=== PATIENT | female | born 1975 | race Caucasian/White ===

== ENCOUNTER 2016-08-17 14:22 | Emergency (ER) | payer MEDICAID ==
[~2016-08-17] VITALS: Wt 71.5 kg
[~2016-08-17 14:22] MED LIST: ALPR0.5T PO; CEPH-443 PO; HYD25 PO
[2016-08-17] MEDS ORDERED: ONDANSETRON (ODT) 4 MG TAB ODT STA (15:23)
[2016-08-17] MEDS ORDERED: HYDROCODONE/APAP (5/325) TAB PO ONE (15:30)
[2016-08-17 15:44] LABS: URINE BLOOD (Dip) POC 2+ (NEGATIVE)
--- NOTE | 2016-08-17 16:19 | ERD ---
ER Documentation Chief Complaint Date/Time DATE: 08/17/16 TIME: 16:14 Chief Complaint HPI This a 41-year-old female presents to the emergency department today complaining of abdominal pain that is been intermittent for the past 2 weeks. Patient states that 4 days ago she started with diarrhea and some nausea. Denies any fevers or chills. States she is concerned because she has a history of gallstones. States she is taking aspirin for the pain. States her stomach feels "inflamed" ROS All systems reviewed and are negative except as per history of present illness. Medications Home Meds Active Scripts Hydrocodone/Acetaminophen (Boomer 5-325 Tablet) 1 Each Tablet, 1 TAB PO Q6H Y for PAIN, #7 TAB Prov:MOSES WHITT PA-C 08/17/16 Dicyclomine Hcl* (Bentyl*) 10 Mg Capsule, 10 MG PO QID, #30 CAP Prov:MOSES WHITT PA-C 08/17/16 Ondansetron Hcl* (Zofran*) 4 Mg Tablet, 4 MG PO Q6H for NAUSEA AND/OR VOMITING, #30 TAB Prov:MOSES WHITT PA-C 08/17/16 Alprazolam* (Xanax*) 0.5 Mg Tab, 0.5 MG PO TID for ANXIETY, #15 TAB Prov:MELANY VASQUEZ MD 02/10/16 Hydrochlorothiazide* (Hydrochlorothiazide*) 25 Mg Tab, 25 MG PO BID, #60 TAB Prov:MELANY VASQUEZ MD 02/10/16 Cephalexin* (Keflex*) 500 Mg Capsule, 500 MG PO QID for 5 Days, CAP Prov:MELANY VASQUEZ MD 02/10/16 Allergies Allergies: Coded Allergies: No Known Allergies (Verified Allergy, Mild, 02/10/16) PMhx/Soc History of Surgery: No Anesthesia Reaction: No Hx Neurological Disorder: No Hx Respiratory Disorders: No Hx Cardiac Disorders: Yes (HTN) Hx Psychiatric Problems: No Hx Miscellaneous Medical Probl: No Hx Alcohol Use: No Hx Substance Use: No Hx Tobacco Use: No Smoking Status: Never smoker Physical Exam Vitals Vital Signs Date Time Temp Pulse Resp B/P Pulse Ox O2 Delivery O2 Flow Rate FiO2 08/17/16 14:26 98.7 96 20 149/97 98 Physical Exam Const: Obese, no acute distress Head: Atraumatic Eyes: Normal Conjunctiva ENT: Normal External Ears, Nose and Mouth. Neck: Full range of motion..~ No meningismus. Resp: Clear to auscultation bilaterally Cardio: Regular rate and rhythm, no murmurs Abd: Soft, no right upper quadrant tenderness, non distended. Normal bowel sounds. No tenderness McBurney's. Skin: No petechiae or rashes Back: No midline or flank tenderness Ext: No cyanosis, or edema Neur: Awake and alert Psych: Normal Mood and Affect Results 24 hrs Laboratory Tests Test 08/17/16 15:49 Bedside Urine pH (LAB) 6.0 Bedside Urine Protein (LAB) Negative Bedside Urine Glucose (UA) 0.50% Bedside Urine Ketones (LAB) Negative Bedside Urine Blood 2+ Bedside Urine Nitrite (LAB) Negative Bedside Urine Leukocyte Esterase (L Negative Current Medications Medications (Trade) Dose Ordered Sig/Patty Route PRN Reason Start Time Stop Time Status Last Admin Dose Admin Ondansetron HCl (Zofran Odt) 4 mg ONCE STAT ODT 08/17/16 15:23 08/17/16 15:25 DC 08/17/16 15:34 Acetaminophen/ Hydrocodone Bitart (Boomer (5/325)) 1 tab ONCE ONCE PO 08/17/16 15:30 08/17/16 15:31 DC 08/17/16 15:34 Procedures/MDM This a 41-year-old female presents to the emergency department today complaining of intermittent abdominal pain for the past 2 weeks and 4 days of diarrhea and some nausea. Patient was concerned because she has a history of gallstones. On her physical exam she has no right upper quadrant tenderness. She has no epigastric tenderness. She has no specific tenderness McBurney's and her pain appears to be more crampy in nature. She is afebrile and otherwise well-appearing. I do not feel the patient requires laboratory workup or imaging at this time especially given her nausea and diarrhea. Did obtain a UA UA is negative for infection and 2+ blood. Other differentials are nephrolithiasis however patient did indicate that her menstrual cycle is irregular and she may be getting her menstrual cycle. I explained to the patient she also has glucose in her urine however she has no ketones. Do not feel the patient requires further workup at this time. Urine test is negative Low suspicion for diverticulitis, acute appendicitis, acute cholecystitis, acute surgical abdomen. Patient was given Boomer and Zofran here in the emergency department. When I asked how she was feeling she jumped out of her chair and ran towards and is in no acute distress. She will begin a prescription for Boomer, Bentyl, Zofran for home At this time the patient is stable for discharge and outpatient management. Patient should follow up with their PCP in the next 1-2 days. They may return to the emergency department sooner for any persistent or worsening of symptoms. Patient understood and agreed with the plan. Discussed the patient with Dr. Durant and he is in agreement with the plan. Departure Diagnosis: Primary Impression: Abdominal pain Abdominal location: generalized Qualified Code: R10.84 - Generalized abdominal pain Additional Impression: Nausea vomiting and diarrhea Condition: MOSES Forrester PA-C Aug 17, 2016 16:19
[2016-08-17] MEDS ORDERED: ONDA4TAB8 PO (16:22)
[2016-08-17] MEDS ORDERED: DICY10CA60 PO (16:23)
[2016-08-17] MEDS ORDERED: HYDR-906 PO (16:23)
== END 2016-08-17 16:40 | disposition home or self-care (01) ==
LOC: FTE 14:22
DX: R10.84 Generalized abdominal pain (principal); R19.7 Diarrhea, unspecified; I10 Essential (primary) hypertension; R11.2 Nausea with vomiting, unspecified
CPT/HCPCS: 81003; Z7502; Z7610; 99283

== ENCOUNTER 2016-10-05 21:12 | Emergency (ER) | END 2016-10-06 02:50 | disposition home or self-care (01) | DX: I10 Essential (primary) hypertension (principal); E11.9 Type 2 diabetes mellitus without complications; Z79.84 Long term (current) use of oral hypoglycemic drugs | CPT/HCPCS: 36415; 70450; 80048; 85025; 85610; 85730; 96374; 96376; Z7502; Z7610 ==

== ENCOUNTER 2016-11-11 22:11 | Emergency (ER) | payer MEDICAID ==
[~2016-11-11] VITALS: Ht 157.5 cm; Wt 68.5 kg
[~2016-11-11 22:11] MED LIST changes: -ALPR0.5T PO; -CEPH-443 PO; -HYD25 PO; +IBUP200C11 PO; +LISI10TA2 PO; +METF500T4 PO
[2016-11-11 22:15] VITALS: Ht 157.5 cm; Wt 68.5 kg
[2016-11-12] MEDS ORDERED: IBUPROFEN 600 MG TAB PO ONE
[2016-11-12] MEDS ORDERED: IBUP-1542 PO (00:50)
--- NOTE | 2016-11-12 00:57 | ERD ---
ER Documentation Chief Complaint Date/Time DATE: 11/12/16 TIME: 00:53 Chief Complaint c/o htn, headache x 1 day HPI This is a 41-year-old female with a known history of hypertension and presents to the ER stating that her blood pressure is too high. Patient also developed a headache today which is located all over her head. Patient has not taken anything for her pain. Patient denies any fevers or chills. She has not fallen or had any trauma to the head. She denies any vision loss or vision changes. This is not the patient's headache of her life. Headache was gradual in onset and has been constant all day. ROS 12 point review of systems was done, all negative except per HPI. Medications Home Meds Active Scripts Ibuprofen* (Motrin*) 600 Mg Tab, 600 MG PO Q6, #30 TAB Prov:ROHITH STEPHEN 11/12/16 Metformin* (Glucophage*) 500 Mg Tab, 500 MG PO DAILY, #20 TAB Prov:PEPPER ALVAREZ MD 10/06/16 Lisinopril* (Lisinopril*) 10 Mg Tablet, 10 MG PO DAILY, #30 TAB Prov:PEPPER ALVAREZ MD 10/06/16 Reported Medications Ibuprofen* (Advil*) 200 Mg Capsule, 200 MG PO Q6H Y for PAIN, CAP 10/06/16 Allergies Allergies: Coded Allergies: No Known Allergies (Verified Allergy, Mild, 11/11/16) PMhx/Soc History of Surgery: No Anesthesia Reaction: No Hx Neurological Disorder: No Hx Respiratory Disorders: No Hx Cardiac Disorders: Yes (HTN) Hx Psychiatric Problems: No Hx Miscellaneous Medical Probl: Yes (dm2) Hx Alcohol Use: No Hx Substance Use: No Hx Tobacco Use: No Smoking Status: Never smoker Physical Exam Vitals Vital Signs Date Time Temp Pulse Resp B/P Pulse Ox O2 Delivery O2 Flow Rate FiO2 11/11/16 22:15 99.3 78 20 177/95 98 Physical Exam GENERAL: The patient is well developed and appropriate for usual state of health , in no apparent distress. HEENT: Atraumatic. Conjunctivae are pink. Pupils equal, round, and reactive to light. Extraocular muscles are grossly intact. Bilateral tympanic membranes are clear with no evidence of erythema, bulging or perforation. No sinus tenderness. NECK: C-spine is soft and supple. There is no cervical lymphadenopathy. CHEST: Clear to auscultation bilaterally. There are no rales, wheezes or rhonchi. HEART: Regular rate and rhythm. No murmurs, clicks, rubs or gallops. EXTREMITIES: Equal pulses bilaterally. There is no peripheral clubbing, cyanosis or edema. No focal swelling or erythema. Full range of motion. Grossly neurovascularly intact. NEURO: Alert and oriented. Cranial nerves II through XII are intact. Motor strength in all 4 extremities with 5/5 strength. Sensation grossly intact. Normal speech and gait. Negative Rhomberg. +2 DTRs. SKIN: There is no apparent rash or petechia. The skin is warm and dry. Results 24 hrs Current Medications Medications (Trade) Dose Ordered Sig/Patty Route PRN Reason Start Time Stop Time Status Last Admin Dose Admin Ibuprofen (Motrin) 600 mg ONCE ONCE PO 11/12/16 00:00 11/12/16 00:01 DC 11/11/16 23:56 Procedures/MDM Differential Diagnosis includes but is not limited to; tension headache, migraine headache, cluster headache, sinus headache, nonspecific febrile headache, trigeminal neurologia, subdural hematoma, subarachnoid bleeding, meningitis, encephalitis. Patient is neurologically intact with no focal neurological deficits. This is a 41-year-old female presents to the ER with a headache. This is likely a tension headache, patient physical examination is completely benign, I do not believe patient needs a CT scan because of this. Patient was given ibuprofen in the ER she felt significantly better. In regards to patient's blood pressure is elevated, however she does not have hypertensive emergency or urgency. Patient is stable for outpatient follow-up, she was told that she is to follow-up with her primary care doctor, she may need added medications for her blood pressure control. Patient is extremely well-appearing and afebrile. She should return to ER sooner if symptoms worsen. Departure Diagnosis: Primary Impression: Headache Condition: Stable Patient Instructions: Self-Care for Headaches, Hypertension, Established Additional Instructions: Llame al doctor MAANA y srinath levy OMA PARA DENTRO DE 1-2 VIRAMONTES.Dgale a la secretaria que nosotros le instruimos hacer esta oma.Avise o llame si salazar condicin se empeora antes de la oma. Regresa aqui si peor o no mejor. ROHITH STEPHEN Nov 12, 2016 00:57
[2016-11-12 01:00] VITALS: BP 162/90; PULSE 69; RESP 20
== END 2016-11-12 01:01 | disposition home or self-care (01) ==
LOC: FTE 22:11
DX: R51 Headache (principal); I10 Essential (primary) hypertension; E11.9 Type 2 diabetes mellitus without complications; Z79.84 Long term (current) use of oral hypoglycemic drugs
CPT/HCPCS: Z7502; Z7610; 99283

== ENCOUNTER 2016-12-06 20:06 | Inpatient (IN) | payer MEDICAID, OTHER ==
[~2016-12-06] VITALS: Ht 157.5 cm; Wt 69.7 kg
[~2016-12-06 20:06] MED LIST changes: +IBUP-1542 PO
[2016-12-06] MEDS ORDERED: SOD CHLORIDE 0.9% 1,000 ML IV STA (20:34)
[2016-12-06] MEDS ORDERED: SITA1TAB PO (20:48)
--- NOTE | 2016-12-06 20:50 | RADRPT ---
PROCEDURE: CT Brain without contrast. CLINICAL INDICATION: Acute onset of aphasia and left arm weakness. Hypertension. TECHNIQUE: A CT of the brain was performed on a [employer] 64-slice CT scanner utilizing axial imaging from the skull base through the vertex without IV contrast. Multiplanar reformatted images were made. Images were reviewed on a PACS workstation. One or more the following dose reduction lee ann hniques were utilized: Automated exposure control, adjustment of mA/ or kV according to patient's s ize, or use of iterative reconstruction technique. The CTDIvol is 44.9 mGy and the DLP is 720.2 mGy cm. COMPARISON: CT BRAIN 10/05/2016 FINDINGS: There is no intracranial hemorrhage, mass effect, or midline shift. No extra-axial fluid collection is seen. The ventricles and sulci are normal in size and configuration. The density of the brain is normal, and the domingo white matter differentiation appears well-preserved. The visualized paranasal sinuses and osseous structures are grossly unremarkable. IMPRESSION: 1. No evidence of acute intracranial pathology. 2. The brain is normal in appearance. Comment: A call report made to Dr. Bates at 8:47 p.m. and 12/06/[address] Levine. RPTAT: HJAH .Naya Levine MD, MD Date Time Electronically viewed and signed by .Naya Levine MD, on 12/06/2016 20:50 .H/
[2016-12-06 20:51] LABS: BASOPHIL # 0.1 10^3/ul (0.0-0.1); BASOPHILS % 0.7 % (0.0-2.0); EOSINOPHILS # 0.1 10^3/ul (0.0-0.5); HEMATOCRIT 40.5 % (37.0-47.0); LYMPHOCYTES # 2.4 10^3/ul (0.8-2.9); LYMPHOCYTES % 29.3 % (15.0-51.0); MEAN CORPUSCULAR HEMOGLOBIN 30.4 pg (29.0-33.0); MEAN CORPUSCULAR HGB CONC 34.6 g/dl (32.0-37.0); MEAN PLATELET VOLUME 11.1 fl (7.4-10.4); MONOCYTE # 0.6 10^3/ul (0.3-0.9); MONOCYTES % 7.5 % (0.0-11.0); NEUTROPHILS % 61.3 % (39.0-77.0); PLATELET COUNT 295 10^3/UL (140-415); RED CELL DISTRIBUTION WIDTH 12.4 % (11.5-14.5); WHITE BLOOD COUNT 8.2 10^3/ul (4.8-10.8)
[2016-12-06] MEDS ORDERED: niCARdipine-NS 0.1MG/ML DRIP 200 ML IV SCH (21:00)
--- NOTE | 2016-12-06 21:07 | ERA ---
ER Documentation Chief Complaint Date/Time DATE: 12/06/16 TIME: 21:03 Chief Complaint c/o CARDENAS with elevated BP HPI This a 41-year-old female who states that she started getting a dull headache and dizziness and felt like her blood pressure was high around 6 or 7 PM tonight. She took her blood pressure at home and had a blood pressure of 167/ 97. Patient told her to take her to the ER. The patient walked into the emergency room and when she got into triage she suddenly became weak and she could not speak. She was taken back to room 9 where her blood pressure is found to be 184/132 the patient was having her eyes closed and not conversing much with some tears. She said she could not speak. She is conveyed this by nodding when asking questions. She says she did not have a headache did not have any pain but that she could not talk and felt weak. A code stroke was called ROS All systems reviewed and are negative except as per history of present illness. Medications Home Meds Active Scripts Ibuprofen* (Motrin*) 600 Mg Tab, 600 MG PO Q6, #30 TAB Prov:ROHITH STEPHEN 11/12/16 Lisinopril* (Lisinopril*) 10 Mg Tablet, 10 MG PO DAILY, #30 TAB Prov:PEPPER ALVAREZ MD 10/06/16 Reported Medications Sitagliptin Phos/Metformin HCl (Janumet 50-500 mg Tablet) 1 Each Tablet, 1 EACH PO BID, TAB 12/06/16 Discontinued Reported Medications Ibuprofen* (Advil*) 200 Mg Capsule, 200 MG PO Q6H Y for PAIN, CAP 10/06/16 Discontinued Scripts Metformin* (Glucophage*) 500 Mg Tab, 500 MG PO DAILY, #20 TAB Prov:PEPPER ALVAREZ MD 10/06/16 Allergies Allergies: Coded Allergies: No Known Allergies (Verified Allergy, Mild, 12/06/16) PMhx/Soc History of Surgery: No Anesthesia Reaction: No Hx Neurological Disorder: No Hx Respiratory Disorders: No Hx Cardiac Disorders: Yes (HTN) Hx Psychiatric Problems: No Hx Miscellaneous Medical Probl: Yes (dm2) Hx Alcohol Use: No Hx Substance Use: No Hx Tobacco Use: No FmHx Family History: No coronary disease Physical Exam Vitals Vital Signs Date Time Temp Pulse Resp B/P Pulse Ox O2 Delivery O2 Flow Rate FiO2 12/06/16 21:43 80 15 147/95 98 Room Air 12/06/16 21:09 Nasal Cannula 2 12/06/16 21:02 84 15 157/102 98 Room Air 12/06/16 20:20 97.0 115 20 251/124 93 Physical Exam Const: Well-developed, well-nourished Head: Atraumatic, normocephalic Eyes: Normal Conjunctiva, PERRLA, EOMI, normal sclera, no nystagmus ENT: Normal External Ears, Nose and Mouth, moist mucus membranes. Neck: Full range of motion. No meningismus, no lymphadenopathy. Resp: Clear to auscultation bilaterally, no wheezing, rhonchi, rales Cardio: Regular rate and rhythm, no murmurs, S1 S2 present Abd: Soft, non tender x 4, non distended. Normal bowel sounds, no guarding or rebound, no pulsitile abdominal masses or bruits Skin: No petechiae or rashes, no ecchymosis , no maculopapular rash Back: No midline or flank tenderness Ext: No cyanosis, or edema, FROM x 4, normal inspection, neurovascularly intact x 4 Neur: Awake and alert, left upper extremity strength 1 out of 5, has some expressive aphasia, other extremities are 3 out of 5, sensation intact x 4, Psych: Tearful Result Diagram: 12/06/16203012/06/162030 Results 24 hrs Laboratory Tests Test 12/06/16 20:28 12/06/16 20:31 Bedside Glucose 141mg/dL White Blood Count 8.210^3/ul Red Blood Count 4.6010^6/ul Hemoglobin 14.0g/dl Hematocrit 40.5% Mean Corpuscular Volume 88.0fl Mean Corpuscular Hemoglobin 30.4pg Mean Corpuscular Hemoglobin Concent 34.6g/dl Red Cell Distribution Width 12.4% Platelet Count 26445^3/UL Mean Platelet Volume 11.1fl Neutrophils % 61.3% Lymphocytes % 29.3% Monocytes % 7.5% Eosinophils % 1.0% Basophils % 0.7% Nucleated Red Blood Cells % 0.0/100WBC Neutrophils # 5.010^3/ul Lymphocytes # 2.410^3/ul Monocytes # 0.610^3/ul Eosinophils # 0.110^3/ul Basophils # 0.110^3/ul Nucleated Red Blood Cells # 0.010^3/ul Prothrombin Time 13.2Sec Prothrombin Time Ratio 1.0 INR International Normalized Ratio 1.00 Activated Partial Thromboplast Time 26.8Sec Sodium Level 141mmol/L Potassium Level 3.4mmol/L Chloride Level 103mmol/L Carbon Dioxide Level 26mmol/L Anion Gap 15 Blood Urea Nitrogen 11mg/dl Creatinine 0.79mg/dl Glucose Level 120mg/dl Calcium Level 9.7mg/dl Total Bilirubin 0.3mg/dl Direct Bilirubin 0.00mg/dl Indirect Bilirubin 0.3mg/dl Aspartate Amino Transf (AST/SGOT) 25IU/L Alanine Aminotransferase (ALT/SGPT) 39IU/L Alkaline Phosphatase 58IU/L Troponin I < 0.012ng/ml Total Protein 7.9g/dl Albumin 4.5g/dl Globulin 3.40g/dl Albumin/Globulin Ratio 1.32 Serum HCG, Qualitative NEGATIVE Current Medications Medications (Trade) Dose Ordered Sig/Patty Route PRN Reason Start Time Stop Time Status Last Admin Dose Admin Sodium Chloride 1,000 ml @ 1,000 mls/hr Q1H STAT IV 12/06/16 20:34 12/06/16 21:33 DC 12/06/16 20:53 Nicardipine HCl (Cardene Iv) 200 ml @ 50 mls/hr TITRATE IV 12/06/16 21:00 12/06/16 20:53 Procedures/MDM PROCEDURE: CT Brain without contrast. CLINICAL INDICATION: Acute onset of aphasia and left arm weakness. Hypertension. TECHNIQUE: A CT of the brain was performed on a [employer] 64-slice CT scanner utilizing axial imaging from the skull base through the vertex without IV contrast. Multiplanar reformatted images were made. Images were reviewed on a PACS workstation. One or more the following dose reduction techniques were utilized: Automated exposure control, adjustment of mA/ or kV according to patient's size, or use of iterative reconstruction technique. The CTDIvol is 44.9 mGy and the DLP is 720.2 mGycm. COMPARISON: CT BRAIN 10/05/2016 FINDINGS: There is no intracranial hemorrhage, mass effect, or midline shift. No extra- axial fluid collection is seen. The ventricles and sulci are normal in size and configuration. The density of the brain is normal, and the domingo white matter differentiation appears well-preserved. The visualized paranasal sinuses and osseous structures are grossly unremarkable. IMPRESSION: 1. No evidence of acute intracranial pathology. 2. The brain is normal in appearance. Comment: A call report made to Dr. Saenz at 8:47 p.m. and 12/06/[address] Levine. RPTAT: HJAH .Naya Levine MD, MD Date Time Electronically viewed and signed by .Naya Levine MD, MD on 12/06/2016 20:50 .H/ CC: DRISS SAENZ DO Patient was started on a Cardene drip by IV hypertension EKG: Rate/Rhythm: Normal Sinus Rhythm,NL intervals QRS, ST, QT: NORMAL [place], QRS, QT] Impression: NORMAL EKG Telemetry neurology evaluated the patient and states the patient is doing much better at this point. Blood pressure is down on a Cardene drip. He says that she does not need TPA. He said there is some possible vessel widening abnormality on the CT scan and is recommending a CT angiogram to rule out any type of artery type of tear or thrombus there. This is been ordered and is currently pending CT angiogram of head and neck. Clinically the patient is improved. She likely had some hypertensive crisis/hypertensive encephalopathy with possible TIA. We will get CT angiogram neck tonight and will follow with MRI brain tomorrow. Critical Care Time: 30 minutes Treatments/Evaluations: Close monitoring and treatment of unstable vital signs, cardiorespiratory, and neurologic status, while maintaining tight balance of fluid, respiratory, and cardiac interventions. This time includes discussing the case with the patient and the patient's family. This time does not include all procedures stated elsewhere in this record. This time also includes reviewing old records, labs and radiological studies. This time includes examining and re-examining the patient. Additionally, this time also includes arranging care with admitting and consulting physicians. Departure Diagnosis: Primary Impression: Hypertensive crisis Additional Impression: TIA (transient ischemic attack) Qualified Code: G45.9 - Transient cerebral ischemia, unspecified type Condition: Stable DRISS SAENZ DO Dec 06, 2016 21:07
[2016-12-06 21:08] LABS: PROTIME 13.2 Sec (12.2-14.2)
[2016-12-06 21:09] LABS: PARTIAL THROMBOPLASTIN TIME 26.8 Sec (25.0-35.0)
[2016-12-06 21:12] LABS: ALANINE AMINOTRANSFERASE 39 IU/L (13-69); ALBUMIN 4.5 g/dl (3.3-4.9); ALBUMIN/GLOBULIN RATIO 1.32; ALKALINE PHOSPHATASE 58 IU/L (42-121); ANION GAP 15 (8-16); BILIRUBIN,INDIRECT 0.3 mg/dl (0-1.1); BILIRUBIN,TOTAL 0.3 mg/dl (0.2-1.3); BLOOD UREA NITROGEN 11 mg/dl (7-20); CALCIUM 9.7 mg/dl (8.4-10.2); CARBON DIOXIDE 26 mmol/L (21-31); CHLORIDE 103 mmol/L (97-110); CREATININE 0.79 mg/dl (0.44-1.00); GLUCOSE 120 mg/dl (70-220); POTASSIUM 3.4 mmol/L (3.5-5.1); SODIUM 141 mmol/L (135-144); TOTAL PROTEIN 7.9 g/dl (6.1-8.1)
[2016-12-06 21:17] LABS: ASPARTATE AMINO TRANSFERASE 25 IU/L (15-46)
[2016-12-06 21:26] LABS: TROPONIN-I < 0.012 ng/ml (0.00-0.12)
--- NOTE | 2016-12-06 21:48 | RADRPT ---
PROCEDURE: XR Chest. CLINICAL INDICATION: Weakness. Possible stroke. TECHNIQUE: Single frontal chest x-ray. COMPARISON: Chest radiograph 05/27/2014. FINDINGS: The lungs volumes are diminished. There are compressive changes with vascular crowding and basilar atelectasis. No pneumothorax, pleural effusion or consolidation is noted. The cardiomediastinal si lhouette is unremarkable. No acute osseous abnormality is noted. IMPRESSION: 1. Low lung volumes with compressive changes and basilar atelectasis. 2. Otherwise, no acute cardiopulmonary abnormality. RPTAT: HFN .Balaji Hou MD, MD Date Time Electronically viewed and signed by .Balaji Hou MD, on 12/06/2016 21:47 .N/
--- NOTE | 2016-12-06 22:09 | CONS ---
DATE OF ADMISSION: 12/06/2016 DATE OF CONSULTATION: 12/06/2016 HISTORY OF PRESENT ILLNESS: I was asked to see this 41-year-old female with a past medical history of hypertension, diabetes mellitus, for decreased strength on the left hand side. The patient prese nted with hypertension, and while in the emergency department developed onset of left-sided symptoms and inability to speak. By the time I am seeing the patient, the patient is now responsive, nonfoc al, and is able to follow commands with just slowing of responses. The patient apparently presented in September with some more symptoms. At that point in time, noncontrast imaging was unremarkable. N oncontrast imaging is again unremarkable tonight with the exception of some hyperdensity at the dist al aspect of her basilar. This was apparent to a lesser extent in her September films. The patient de nies any illicit drug use. She denies any medication changes or intoxication. Her blood glucose is within normal limits. PAST MEDICAL HISTORY: Significant for diabetes as well as hypertension. Her blood glucose today is 147. The patient is not a drinker, she is not a smoker. PHYSICAL EXAMINATION: The NIH stroke score was completed and she scores a 0. Specifically, she was oriented. She was a little bit slow to respond. Her extraocular movements were full. Facies were symmetric. Her strength is 5/5 throughout and she had no sensory impairment. She demonstrated no ataxia. ASSESSMENT: This is a 41-year-old female who likely has hypertensive encephalopathy. It is somewha t concerning that the patient's blood pressure was not extraordinarily high, but given the patient's nonspecific findings of hyperdensity in her vascular, I would perform a CTA of the head and neck to exclude any vertebrobasilar disease. However, the patient is young in age, and this would be an at ypical finding for someone with these risks. The patient should be watched closely. I would hydrat e her with saline. The patient should be given an aspirin. The patient should be admitted for obse rvation. I spoke directly with the emergency department regarding my recommendations. Dictated By: ELHAM GILMORE/VISHAL Conf#: [id number] DID#: [id number]
[2016-12-06] MEDS ORDERED: IOHEXOL 350MG/ML 50 ML BTL ONE (22:14)
[2016-12-06] MEDS ORDERED: IOHEXOL 100 ML ONE (22:14)
[2016-12-06] MEDS ORDERED: SOD CHLORIDE 0.9% 100 ML ONE (22:14)
[2016-12-06] MEDS ORDERED: ASPIRIN (EC) 325 MG TAB PO ONE (22:30)
--- NOTE | 2016-12-06 23:19 | RADRPT ---
PROCEDURE: CT angiogram of the head and neck with contrast. CLINICAL INDICATION: Stroke. TECHNIQUE: CT angiogram of the head and neck was performed on a multi-detector high-resolution CT scanner. Contiguous axial images were obtained after the dynamic injection of 115 cc Omnipaque 350 intravenous contrast. Coronal and sagittal as well as maximal intensity projection reformations we re obtained. 3-D post processing was also performed. Images were reviewed on a PACS workstation. One or more of the following dose reduction techniques were used: - Automated exposure control. - Adjustment of the mA and/or kV according to patient size. - Use of iterative reconstruction technique. Exam CTD/vol = 15.98 mGy. Total exam DLP = 573.63 mGy-cm. COMPARISON: None. FINDINGS: Neck: The visualized aortic arch and proximal great vessels are within normal limits. Bilateral com mon carotid arteries are normal course and caliber. Bilateral carotid bulbs and bifurcations are wi thin normal limits. Bilateral internal and external carotid arteries are of normal course and calib er. Bilateral vertebral arteries are of normal course and caliber. There is no significant stenosi s or occlusion. There is no evidence of aneurysm or dissection. Brain: Bilateral distal internal carotid arteries are normal course and caliber. Bilateral anterio r and middle cerebral arteries are within normal limits. Bilateral distal vertebral arteries are of normal course and caliber. The basilar artery is intact. Bilateral posterior cerebral arteries ar e within normal limits. There is no significant stenosis or occlusion. There is no evidence of ane urysm or vascular malformation. The venous structures are unremarkable. IMPRESSION: Unremarkable CT angiogram of the head and neck. No hemodynamically significant carotid stenosis. During measurements of vessel diameter was made in reference to measurements of the distal internal carotid artery diameter. .Fran Smith MD, MD Date Time Electronically viewed and signed by .Fran Smith MD, MD on 12/06/2016 23:19 .T/
--- NOTE | 2016-12-06 23:22 | RADRPT ---
PROCEDURE: CT angiogram of the head and neck with contrast. CLINICAL INDICATION: Stroke. TECHNIQUE: CT angiogram of the head and neck was performed on a multi-detector high-resolution CT [facility]. Contiguous axial images were obtained after the dynamic injection of 115 cc Omnipaque 350 int ravenous contrast. Coronal and sagittal as well as maximal intensity projection reformations were ob tained. 3-D post processing was also performed. Images were reviewed on a PACS workstation. One or more of the following dose reduction techniques were used: - Automated exposure control. - Adjustment of the mA and/or kV according to patient size. - Use of iterative reconstruction technique. Exam CTD/vol = 15.98 mGy. Total exam DLP = 573.63 mGy-cm. COMPARISON: None. FINDINGS: Neck: The visualized aortic arch and proximal great vessels are within normal limits. Bilateral comm on carotid arteries are normal course and caliber. Bilateral carotid bulbs and bifurcations are with in normal limits. Bilateral internal and external carotid arteries are of normal course and caliber. Bilateral vertebral arteries are of normal course and caliber. There is no significant stenosis or occlusion. There is no evidence of aneurysm or dissection. Brain: Bilateral distal internal carotid arteries are normal course and caliber. Bilateral anterior and middle cerebral arteries are within normal limits. Bilateral distal vertebral arteries are of no rmal course and caliber. The basilar artery is intact. Bilateral posterior cerebral arteries are wit hin normal limits. There is no significant stenosis or occlusion. There is no evidence of aneurysm o r vascular malformation. The venous structures are unremarkable. IMPRESSION: Unremarkable CT angiogram of the head and neck. No hemodynamically significant carotid stenosis. During measurements of vessel diameter was made in reference to measurements of the distal internal carotid artery diameter. .Fran Smith MD, MD Date Time Electronically viewed and signed by .Fran Smith MD, MD on 12/06/2016 23:22 .T/
[2016-12-06] MEDS ORDERED: SOD CHLORIDE 0.9% 1,000 ML IV SCH (23:23)
[2016-12-06] MEDS ORDERED: ONDANSETRON 4 MG INJ IV PRN (23:30)
[2016-12-06] MEDS ORDERED: ACETAMINOPHEN 325 MG TAB PO PRN (23:30)
[2016-12-07] VITALS (13 sets, daily range): BP systolic 104–137; BP diastolic 71–97; PULSE 71–97; RESP 16–20; Ht 157.5 cm; Wt 69.7 kg
[2016-12-07] MEDS ORDERED: ACETAMINOPHEN 325 MG TAB PO PRN (02:24)
[2016-12-07] MEDS ORDERED: BISACODYL (EC) 5 MG TAB PO PRN (02:30)
[2016-12-07] MEDS ORDERED: DOCUSATE SODIUM 100 MG CAP PO PRN (02:30)
[2016-12-07] MEDS ORDERED: ONDANSETRON 4 MG INJ IV PRN (02:30)
[2016-12-07] MEDS ORDERED: NACL 0.9% 3 ML SYG IV SCH (02:30)
[2016-12-07] MEDS ORDERED: hydrALAzine 20 MG INJ IV PRN (02:30)
--- NOTE | 2016-12-07 08:27 | HP ---
Date/Time of Note Date/Time of Note DATE: 12/07/16 TIME: 08:17 Assessment/Plan VTE Prophylaxis VTE Prophylaxis Intervention: SCD's Lines/Catheters IV [facility]from [facility] Saline Lock Assessment/Plan Chief Complaint/Hosp Course This is a 41-year-old female being admitted to the telemetry floor for: #1 Dizziness: TIA versus hypertensive encephalopathy. Patient has improved significantly since her initial episode and is close to baseline as per her self and her . The current time will monitor patient's blood pressure. Will allow for permissive hypertension however we will treat if greater than 180 /110. Will obtain MRI in the a.m. Neurochecks every 4 hours. Will check TSH lipid panel and hemoglobin A 1C. Consult neurology. Echocardiogram with bubble study. CT scan of the brain and CTA of the head and neck do not appear to show any acute abnormalities at this time. #2 hypertension: Again we will treat as per #1. #3 diabetes mellitus: We will check hemoglobin A1c, insulin sliding scale #4 hyperlipidemia: We will check lipid panel #5 DVT GI prophylaxis: SCDs, acid oleksandr Further treatment strategy will be implemented as per the clinical course Problems: HPI/ROS Admit Date/Time Admit Date/Time Dec 06, 2016 at 23:24 Hx of Present Illness Chief complaint: Headache and dizziness This a 41-year-old female who states that she started getting a dull headache and dizziness and felt like her blood pressure was high around 6 or 7 PM tonight. She took her blood pressure at home and had a blood pressure of 167/ 97. Patient told her to take her to the ER. The patient walked into the emergency room and when she got into triage she suddenly became weak and she could not speak. She was taken back to room 9 where her blood pressure is found to be 184/132 the patient was having her eyes closed and not conversing much with some tears. She said she could not speak. She is conveyed this by nodding when asking questions. She says she did not have a headache did not have any pain but that she could not talk and felt weak. A code stroke was called. As per telemetry neurology is suspected that this may be hypertensive encephalopathy. There was nonspecific findings hyperdensity in her vascular on CAT scan the recommendation was to perform a CT of the head and neck to exclude any vertebrobasilar disease. Of note upon my examination the patient did appear fatigued however there is no focal deficit on neurological exam. She was speaking coherently. Allergies: NKDA Medications: See JE DAY Const: As per HPI Eyes : No pain discharge or redness or change in visual acuity ENT: No pain, sore throat, congestion, congestion, dysphagia or discharge Respiratory: No shortness of breath, cough, sputum, wheezing, or pleuritic pain Cardiovascular: No chest pain, palpitation, PND, or edema GI : no change in appetite, abdominal pain, nausea, vomiting, diarrhea, constipation, or change in the color his stool Genitourinary: No dysuria, hematuria, flank pain , discharge or CVA tenderness Musculoskeletal: No joint pain, back pain, neck pain, restricted range of motion in neck or joints Skin: No rash, bruising or hives Neuro: As per HPI Endocrine: No polyuria, polydipsia, temperature intolerance Psych: No hallucination, depression, anxiety or suicidal ideation PMH/Family/Social Past Medical History Diabetes mellitus, hypertension, hyperlipidemia Past Surgical History Past Surgical Hx: no surgical history Family History Significant Family History: diabetes Social History Alcohol Use: none Smoking Status: Never smoker Drug Use: none Exam/Review of Systems Vital Signs Vitals Vital Signs Date Time Temp Pulse Resp B/P Pulse Ox O2 Delivery O2 Flow Rate FiO2 12/07/16 07:47 98.4 81 18 136/84 97 12/07/16 01:24 Room Air 12/06/16 21:09 2 Intake and Output 12/06/16 12/06/16 12/07/16 15:00 23:00 07:00 Intake Total 1300 ml Balance 1300 ml Exam Exam General: Patient is well-developed well-nourished The patient is alert oriented -3 lying comfortably in bed. HEENT: Atraumatic, normocephalic. The pupils are equal, round and reactive. Extraocular motor are intact Neck: Supple with full range of motion. No rigidity or meningismus Chest: Nontender Lungs: Clear to auscultation bilaterally no crackles rales or wheezing Heart: Normal S1-S2, Regular rhythm and rate. No overt murmurs appreciated Abdomen: Soft , nontender, nondistended , bowel sounds are present. No guarding no rebound tenderness , No masses or organomegaly. No costovertebral temporal angle mass Extremities: Normal to inspection, no edema no cyanosis Neurologic: Normal mental status, speech normal, cranial nerves II through XII are intact, motor and sensory are intact, no focal neurological deficits. Strength 5 out of 5 in bilateral upper and lower extremities Additional Comments PROCEDURE: XR Chest. CLINICAL INDICATION: Weakness. Possible stroke. TECHNIQUE: Single frontal chest x-ray. COMPARISON: Chest radiograph 05/27/2014. FINDINGS: The lungs volumes are diminished. There are compressive changes with vascular crowding and basilar atelectasis. No pneumothorax, pleural effusion or consolidation is noted. The cardiomediastinal silhouette is unremarkable. No acute osseous abnormality is noted. IMPRESSION: 1. Low lung volumes with compressive changes and basilar atelectasis. 2. Otherwise, no acute cardiopulmonary abnormality. RPTAT: HFN .Balaji Hou MD, MD Date Time Electronically viewed and signed by .Balaji Hou MD, MD on 12/06/2016 21: 47 .N/ CC: DRISS SAENZ DO PROCEDURE: CT Brain without contrast. CLINICAL INDICATION: Acute onset of aphasia and left arm weakness. Hypertension. TECHNIQUE: A CT of the brain was performed on a [employer] 64-slice CT scanner utilizing axial imaging from the skull base through the vertex without IV contrast. Multiplanar reformatted images were made. Images were reviewed on a PACS workstation. One or more the following dose reduction techniques were utilized: Automated exposure control, adjustment of mA/ or kV according to patient's size, or use of iterative reconstruction technique. The CTDIvol is 44.9 mGy and the DLP is 720.2 mGycm. COMPARISON: CT BRAIN 10/05/2016 FINDINGS: There is no intracranial hemorrhage, mass effect, or midline shift. No extra- axial fluid collection is seen. The ventricles and sulci are normal in size and configuration. The density of the brain is normal, and the [place] white matter differentiation appears well-preserved. The visualized paranasal sinuses and osseous structures are grossly unremarkable. IMPRESSION: 1. No evidence of acute intracranial pathology. 2. The brain is normal in appearance. Comment: A call report made to Dr. Saenz at 8:47 p.m. and 12/06/[address] Levine. RPTAT: HJAH .Naya Levine MD, MD Date Time Electronically viewed and signed by .Naya Levine MD, MD on 12/06/2016 20:50 .H/ CC: DRISS SAENZ DO PROCEDURE: CT angiogram of the head and neck with contrast. CLINICAL INDICATION: Stroke. TECHNIQUE: CT angiogram of the head and neck was performed on a multi- detector high-resolution CT scanner. Contiguous axial images were obtained after the dynamic injection of 115 cc Omnipaque 350 intravenous contrast. Coronal and sagittal as well as maximal intensity projection reformations were obtained. 3-D post processing was also performed. Images were reviewed on a PACS workstation. One or more of the following dose reduction techniques were used: - Automated exposure control. - Adjustment of the mA and/or kV according to patient size. - Use of iterative reconstruction technique. Exam CTD/vol = 15.98 mGy. Total exam DLP = 573.63 mGy-cm. COMPARISON: None. FINDINGS: Neck: The visualized aortic arch and proximal great vessels are within normal limits. Bilateral common carotid arteries are normal course and caliber. Bilateral carotid bulbs and bifurcations are within normal limits. Bilateral internal and external carotid arteries are of normal course and caliber. Bilateral vertebral arteries are of normal course and caliber. There is no significant stenosis or occlusion. There is no evidence of aneurysm or dissection. Brain: Bilateral distal internal carotid arteries are normal course and caliber. Bilateral anterior and middle cerebral arteries are within normal limits. Bilateral distal vertebral arteries are of normal course and caliber. The basilar artery is intact. Bilateral posterior cerebral arteries are within normal limits. There is no significant stenosis or occlusion. There is no evidence of aneurysm or vascular malformation. The venous structures are unremarkable. IMPRESSION: Unremarkable CT angiogram of the head and neck. No hemodynamically significant carotid stenosis. During measurements of vessel diameter was made in reference to measurements of the distal internal carotid artery diameter. .Fran Smith MD, MD Date Time Electronically viewed and signed by .Fran Smith MD, MD on 12/06/2016 23:19 .T/ CC: DRISS SAENZ DO PROCEDURE: CT angiogram of the head and neck with contrast. CLINICAL INDICATION: Stroke. TECHNIQUE: CT angiogram of the head and neck was performed on a multi-detector high-resolution CT scanner. Contiguous axial images were obtained after the dynamic injection of 115 cc Omnipaque 350 intravenous contrast. Coronal and sagittal as well as maximal intensity projection reformations were obtained. 3- D post processing was also performed. Images were reviewed on a PACS workstation. One or more of the following dose reduction techniques were used: - Automated exposure control. - Adjustment of the mA and/or kV according to patient size. - Use of iterative reconstruction technique. Exam CTD/vol = 15.98 mGy. Total exam DLP = 573.63 mGy-cm. COMPARISON: None. FINDINGS: Neck: The visualized aortic arch and proximal great vessels are within normal limits. Bilateral common carotid arteries are normal course and caliber. Bilateral carotid bulbs and bifurcations are within normal limits. Bilateral internal and external carotid arteries are of normal course and caliber. Bilateral vertebral arteries are of normal course and caliber. There is no significant stenosis or occlusion. There is no evidence of aneurysm or dissection. Brain: Bilateral distal internal carotid arteries are normal course and caliber. Bilateral anterior and middle cerebral arteries are within normal limits. Bilateral distal vertebral arteries are of normal course and caliber. The basilar artery is intact. Bilateral posterior cerebral arteries are within normal limits. There is no significant stenosis or occlusion. There is no evidence of aneurysm or vascular malformation. The venous structures are unremarkable. IMPRESSION: Unremarkable CT angiogram of the head and neck. No hemodynamically significant carotid stenosis. During measurements of vessel diameter was made in reference to measurements of the distal internal carotid artery diameter. .Fran Smith MD, MD Date Time Electronically viewed and signed by .Fran Smith MD, on 12/06/2016 23:22 .T/ CC: DRISS SAENZ DO EKG: Rate/Rhythm: Normal Sinus Rhythm,NL intervals QRS, ST, QT: NORMAL GA, QRS, QT] Impression: NORMAL EKG Labs Result Diagram: 12/06/16203012/06/162030 Medications Medications Current Medications Ondansetron HCl (Zofran Inj) 4 mg Q6H PRN IV NAUSEA AND/OR VOMITING; Start at 02:30 Acetaminophen (Tylenol Tab) 650 mg Q6H PRN PO PAIN LEVEL 1-3 OR FEVER; Start 12/07/16 at 02:30 Docusate Sodium (Colace) 100 mg Q12H PRN PO CONSTIPATION; Start 12/07/16 at 02 :30 Bisacodyl (Dulcolax) 5 mg DAILY PRN PO CONSTIPATION; Start 12/07/16 at 02:30 Famotidine (Pepcid Iv) 20 mg Q12 IV ; Start 12/07/16 at 09:00 Hydralazine HCl (Apresoline) 10 mg Q4H PRN IV ELEVATED BLOOD PRESSURE; Start 12/07/16 at 02:30 Acetaminophen (Tylenol Tab) 650 mg Q4H PRN PO PAIN AND OR ELEVATED TEMP; Start 12/07/16 at 02:24 OTF FORTUNE Dec 07, 2016 08:27
[2016-12-07 08:30] LABS: BASOPHIL # 0.1 10^3/ul (0.0-0.1); BASOPHILS % 0.8 % (0.0-2.0); EOSINOPHILS # 0.1 10^3/ul (0.0-0.5); EOSINOPHILS % 1.3 % (0.0-7.0); HEMATOCRIT 39.5 % (37.0-47.0); HEMOGLOBIN 13.3 g/dl (12.0-16.0); LYMPHOCYTES # 1.5 10^3/ul (0.8-2.9); LYMPHOCYTES % 18.9 % (15.0-51.0); MEAN CORPUSCULAR HGB CONC 33.7 g/dl (32.0-37.0); MEAN CORPUSCULAR VOLUME 89.2 fl (82.0-101.0); MEAN PLATELET VOLUME 10.8 fl (7.4-10.4); MONOCYTE # 0.5 10^3/ul (0.3-0.9); MONOCYTES % 6.9 % (0.0-11.0); NEUTROPHIL # 5.6 10^3/ul (1.6-7.5); NEUTROPHILS % 71.7 % (39.0-77.0); PLATELET COUNT 284 10^3/UL (140-415); RED BLOOD COUNT 4.43 10^6/ul (4.20-5.40); RED CELL DISTRIBUTION WIDTH 12.5 % (11.5-14.5); WHITE BLOOD COUNT 7.8 10^3/ul (4.8-10.8)
[2016-12-07] MEDS ORDERED: FAMOTIDINE 20 MG INJ IV SCH (09:00)
[2016-12-07 09:17] LABS: ALBUMIN/GLOBULIN RATIO 1.29; BILIRUBIN,INDIRECT 0.3 mg/dl (0-1.1); BILIRUBIN,TOTAL 0.3 mg/dl (0.2-1.3); CALCIUM 8.9 mg/dl (8.4-10.2); CHOL/HDL RATIO 4.5 RATIO; CREATININE 0.67 mg/dl (0.44-1.00); MAGNESIUM 1.9 mg/dl (1.7-2.5); POTASSIUM 3.7 mmol/L (3.5-5.1); TOTAL PROTEIN 7.1 g/dl (6.1-8.1)
[2016-12-07] MEDS: ACETAMINOPHEN 325 MG TAB PO PRN (09:34)
[2016-12-07 10:20] LABS: THYROID STIMULATING HORMONE 7.15 MIU/L (0.465-4.680)
--- NOTE | 2016-12-07 13:09 | CONS ---
Date/Time of Note Date/Time of Note DATE: 12/07/16 TIME: 13:05 Assessment/Plan Assessment/Plan Chief Complaint/Hosp Course 41 yo female w hx of HTN, DM admitted with weakness, difficulty speaking in setting of elevated blood pressure. Likely hypertensive emergency. May pursue further imaging MRI Brain and MRA Head/Neck w/o contrast to eval for ischemic changes when SBP is more controlled less than 140 may benefit from ASA 81 mg daily optimize stroke risk factors check FLP and HBA1C ECHO w bubble study will follow Problems: Consultation Date/Type/Reason Admit Date/Time Dec 06, 2016 at 23:24 Date of Consultation: Dec 07, 2016 Type of Consultation: Neurology Reason for Consultation hypertensive emergency TIA eval Referring Provider: OTF FORTUNE Hx of Present Illness 41 yo female w hx of HTN and DM admitted with headache and dizziness with SBP elevated last night, checked her BP at home 167/97 per report. She c/o sudden generalized weakness and inability to speak, she reports prior hx of similar sx over 3 years ago. She was evaluated by tele neuro, suspected hypertensive encephalopathy. Her symptoms are now resolved, no further difficulty w speech or headaches. She is unable to report how long her sx lasted for. Past Surgical History Past Surgical Hx: no surgical history Social History Alcohol Use: none Smoking Status: Never smoker Drug Use: none Exam/Review of Systems Vital Signs Vitals Vital Signs Date Time Temp Pulse Resp B/P Pulse Ox O2 Delivery O2 Flow Rate FiO2 12/07/16 12:00 71 12/07/16 11:23 98.8 18 136/97 98 12/07/16 01:24 Room Air 12/06/16 21:09 2 Intake and Output 12/06/16 12/06/16 12/07/16 15:00 23:00 07:00 Intake Total 1300 ml Balance 1300 ml Exam Constitutional: alert, oriented, well developed Neurological: BREAST BUFFER II-XII intact, DTR's symmetric, nl mental status, nl speech, nl strength Results Result Diagram: 12/07/16 0806 12/07/16 0806 Results 24 hrs Laboratory Tests Test 12/06/16 20:28 12/06/16 20:31 12/06/16 23:07 12/07/16 08:06 Bedside Glucose 141 109 99 White Blood Count 8.2 # 7.8 Red Blood Count 4.60 4.43 Hemoglobin 14.0 13.3 Hematocrit 40.5 39.5 Mean Corpuscular Volume 88.0 89.2 Mean Corpuscular Hemoglobin 30.4 30.0 Mean Corpuscular Hemoglobin Concent 34.6 33.7 Red Cell Distribution Width 12.4 12.5 Platelet Count 295 284 Mean Platelet Volume 11.1 H 10.8 H Neutrophils % 61.3 71.7 Lymphocytes % 29.3 18.9 Monocytes % 7.5 6.9 Eosinophils % 1.0 1.3 Basophils % 0.7 0.8 Nucleated Red Blood Cells % 0.0 0.0 Neutrophils # 5.0 5.6 Lymphocytes # 2.4 1.5 Monocytes # 0.6 0.5 Eosinophils # 0.1 0.1 Basophils # 0.1 0.1 Nucleated Red Blood Cells # 0.0 0.0 Prothrombin Time 13.2 Prothrombin Time Ratio 1.0 INR International Normalized Ratio 1.00 Activated Partial Thromboplast Time 26.8 Sodium Level 141 140 Potassium Level 3.4 L 3.7 Chloride Level 103 106 Carbon Dioxide Level 26 24 Anion Gap 15 14 Blood Urea Nitrogen 11 10 Creatinine 0.79 0.67 Glucose Level 120 93 Calcium Level 9.7 8.9 Total Bilirubin 0.3 0.3 Direct Bilirubin 0.00 0.00 Indirect Bilirubin 0.3 0.3 Aspartate Amino Transf (AST/SGOT) 25 19 Alanine Aminotransferase (ALT/SGPT) 39 38 Alkaline Phosphatase 58 53 Troponin I < 0.012 Total Protein 7.9 7.1 Albumin 4.5 4.0 Globulin 3.40 H 3.10 Albumin/Globulin Ratio 1.32 1.29 Serum HCG, Qualitative NEGATIVE Hemoglobin A1c 7.3 H Magnesium Level 1.9 Triglycerides Level 77 Cholesterol Level 137 LDL Cholesterol, Calculated 92 HDL Cholesterol 30 L Cholesterol/HDL Ratio 4.5 Thyroid Stimulating Hormone (TSH) 7.150 H Medications Medications Current Medications Ondansetron HCl (Zofran Inj) 4 mg Q6H PRN IV NAUSEA AND/OR VOMITING; Start at 02:30 Acetaminophen (Tylenol Tab) 650 mg Q6H PRN PO PAIN LEVEL 1-3 OR FEVER Last administered on 12/07/16t 09:34; Admin Dose 650 MG; Start 12/07/16 at 02:30 Docusate Sodium (Colace) 100 mg Q12H PRN PO CONSTIPATION; Start 12/07/16 at 02 :30 Bisacodyl (Dulcolax) 5 mg DAILY PRN PO CONSTIPATION; Start 12/07/16 at 02:30 Famotidine (Pepcid Iv) 20 mg Q12 IV Last administered on 12/07/16t 10:33; Admin Dose 20 MG; Start 12/07/16 at 09:00 Hydralazine HCl (Apresoline) 10 mg Q4H PRN IV ELEVATED BLOOD PRESSURE; Start 12/07/16 at 02:30 Acetaminophen (Tylenol Tab) 650 mg Q4H PRN PO PAIN AND OR ELEVATED TEMP; Start 12/07/16 at 02:24 YOLY BRAR MD Dec 07, 2016 13:09
[2016-12-07] MEDS ORDERED: GLUCOSE GEL 15 GRAM TUBE PO PRN ×2 (16:00)
[2016-12-07] MEDS ORDERED: DEXTROSE 50% 50 ML SYRINGE IV PRN ×2 (16:00)
[2016-12-07] MEDS ORDERED: GLUCOSE GEL 15 GRAM TUBE BUCCAL PRN (16:00)
[2016-12-07] MEDS ORDERED: GLUCAGON 1 MG INJ IM PRN (16:00)
[2016-12-07] MEDS: INSULIN ASPART [NOVOLOG] 3 ML PEN SC SCH ×3 (17:44→20:15)
[2016-12-07] MEDS: FAMOTIDINE 20 MG TAB PO SCH (20:13)
[2016-12-07 23:12] LABS: BARBITURATES Negative (NEGATIVE); BENZODIAZEPINES Negative (NEGATIVE); CANNABINOIDS Negative (NEGATIVE); COCAINE Negative (NEGATIVE); OPIATES Negative (NEGATIVE)
[2016-12-08] VITALS (11 sets, daily range): BP systolic 125–155; BP diastolic 78–103; PULSE 70–100; RESP 16–18
[2016-12-08] MEDS: ACCU-CHEK XX SCH (01:47)
[2016-12-08] MEDS ORDERED: ACCU-CHEK XX SCH (02:00)
[2016-12-08] MEDS: ACETAMINOPHEN 325 MG TAB PO PRN (04:51)
[2016-12-08] MEDS: INSULIN ASPART [NOVOLOG] 3 ML PEN SC SCH ×7 (08:00→20:32)
[2016-12-08] MEDS: FAMOTIDINE 20 MG TAB PO SCH ×2 (08:53→20:29)
[2016-12-08 09:32] LABS: BASOPHIL # 0.1 10^3/ul (0.0-0.1); BASOPHILS % 0.8 % (0.0-2.0); EOSINOPHILS # 0.1 10^3/ul (0.0-0.5); EOSINOPHILS % 1.3 % (0.0-7.0); HEMATOCRIT 40.7 % (37.0-47.0); HEMOGLOBIN 13.8 g/dl (12.0-16.0); LYMPHOCYTES # 1.5 10^3/ul (0.8-2.9); LYMPHOCYTES % 20.8 % (15.0-51.0); MEAN CORPUSCULAR HEMOGLOBIN 30.4 pg (29.0-33.0); MEAN CORPUSCULAR HGB CONC 33.9 g/dl (32.0-37.0); MEAN CORPUSCULAR VOLUME 89.6 fl (82.0-101.0); MEAN PLATELET VOLUME 10.7 fl (7.4-10.4); MONOCYTE # 0.4 10^3/ul (0.3-0.9); MONOCYTES % 5.9 % (0.0-11.0); NEUTROPHIL # 5.1 10^3/ul (1.6-7.5); NEUTROPHILS % 71.1 % (39.0-77.0); PLATELET COUNT 274 10^3/UL (140-415); RED BLOOD COUNT 4.54 10^6/ul (4.20-5.40); RED CELL DISTRIBUTION WIDTH 12.5 % (11.5-14.5); WHITE BLOOD COUNT 7.1 10^3/ul (4.8-10.8)
[2016-12-08 09:50] LABS: MAGNESIUM 1.9 mg/dl (1.7-2.5)
[2016-12-08 09:51] LABS: ALBUMIN 4.1 g/dl (3.3-4.9); ALBUMIN/GLOBULIN RATIO 1.36; BILIRUBIN,INDIRECT 0.6 mg/dl (0-1.1); BILIRUBIN,TOTAL 0.6 mg/dl (0.2-1.3); CALCIUM 8.8 mg/dl (8.4-10.2); CREATININE 0.7 mg/dl (0.44-1.00); POTASSIUM 3.9 mmol/L (3.5-5.1); TOTAL PROTEIN 7.1 g/dl (6.1-8.1)
--- NOTE | 2016-12-08 11:39 | CONS ---
Date/Time of Note Date/Time of Note DATE: 12/08/16 TIME: 11:38 Consult Date/Type/Reason Admit Date/Time Dec 06, 2016 at 23:24 Initial Consult Date 12/07/16 Type of Consultation: Neurology Reason for Consultation difficulty speaking weakness r/o TIA Ordering Provider: OTF FORTUNE Subjective c/o generalized weakness no further speech issues Objective Vital Signs Date Time Temp Pulse Resp B/P Pulse Ox O2 Delivery O2 Flow Rate FiO2 12/08/16 08:00 87 12/08/16 07:45 97.8 18 152/97 98 12/07/16 01:24 Room Air 12/06/16 21:09 2 Intake and Output 12/07/16 12/07/16 12/08/16 15:00 23:00 07:00 Intake Total 360 ml 900 ml Balance 360 ml 900 ml Exam Constitutional: alert, oriented, well developed Neurological: PRIMARY OPERATOR II-XII intact, DTR's symmetric, nl mental status, nl speech, nl strength Results/Medications Result Diagram: 12/08/1618 12/08/1618 Results 24 hrs Laboratory Tests Test 12/07/16 12:54 12/07/16 17:12 12/07/16 20:06 12/07/16 21:50 Bedside Glucose 88 90 112 Urine Opiates Screen Negative Urine Barbiturates Negative Urine Amphetamines Screen Negative Urine Benzodiazepines Screen Negative Urine Cocaine Screen Negative Urine Cannabinoids Negative Test 12/08/16 08:52 12/08/16 09:18 Bedside Glucose 104 White Blood Count 7.1 Red Blood Count 4.54 Hemoglobin 13.8 Hematocrit 40.7 Mean Corpuscular Volume 89.6 Mean Corpuscular Hemoglobin 30.4 Mean Corpuscular Hemoglobin Concent 33.9 Red Cell Distribution Width 12.5 Platelet Count 274 Mean Platelet Volume 10.7 H Neutrophils % 71.1 Lymphocytes % 20.8 Monocytes % 5.9 Eosinophils % 1.3 Basophils % 0.8 Nucleated Red Blood Cells % 0.0 Neutrophils # 5.1 Lymphocytes # 1.5 Monocytes # 0.4 Eosinophils # 0.1 Basophils # 0.1 Nucleated Red Blood Cells # 0.0 Sodium Level 140 Potassium Level 3.9 Chloride Level 104 Carbon Dioxide Level 27 Anion Gap 13 Blood Urea Nitrogen 13 Creatinine 0.70 Glucose Level 144 # Calcium Level 8.8 Phosphorus Level 4.0 Magnesium Level 1.9 Total Bilirubin 0.6 Direct Bilirubin 0.00 Indirect Bilirubin 0.6 Aspartate Amino Transf (AST/SGOT) 24 Alanine Aminotransferase (ALT/SGPT) 40 Alkaline Phosphatase 50 Total Protein 7.1 Albumin 4.1 Globulin 3.00 Albumin/Globulin Ratio 1.36 Thyroid Stimulating Hormone (TSH) Pending Medications Current Medications Ondansetron HCl (Zofran Inj) 4 mg Q6H PRN IV NAUSEA AND/OR VOMITING; Start at 02:30 Acetaminophen (Tylenol Tab) 650 mg Q6H PRN PO PAIN LEVEL 1-3 OR FEVER Last administered on 12/08/16 04:51; Admin Dose 650 MG; Start 12/07/16 at 02:30 Docusate Sodium (Colace) 100 mg Q12H PRN PO CONSTIPATION; Start 12/07/16 at 02 :30 Bisacodyl (Dulcolax) 5 mg DAILY PRN PO CONSTIPATION; Start 12/07/16 at 02:30 Hydralazine HCl (Apresoline) 10 mg Q4H PRN IV ELEVATED BLOOD PRESSURE; Start 12/07/16 at 02:30 Acetaminophen (Tylenol Tab) 650 mg Q4H PRN PO PAIN AND OR ELEVATED TEMP; Start 12/07/16 at 02:24 Famotidine (Pepcid) 20 mg Q12 PO Last administered on 12/08/16 08:53; Admin Dose 20 MG; Start 12/07/16 at 21:00 Diagnostic Test (Pha) (Accu-Chek) 1 ea 02 XX ; Start 12/08/16 at 02:00 Miscellaneous Information 1 ea NOTE XX ; Start 12/07/16 at 16:00 Glucose (Glutose) 15 gm Q15M PRN PO DECREASED GLUCOSE; Start 12/07/16 at 16:00 Glucose (Glutose) 22.5 gm Q15M PRN PO DECREASED GLUCOSE; Start 12/07/16 at 16: 00 Dextrose (D50w Syringe) 25 ml Q15M PRN IV DECREASED GLUCOSE; Start 12/07/16 at 16:00 Dextrose (D50w Syringe) 50 ml Q15M PRN IV DECREASED GLUCOSE; Start 12/07/16 at 16:00 Glucagon (Glucagen) 1 mg Q15M PRN IM DECREASED GLUCOSE; Start 12/07/16 at 16: 00 Glucose (Glutose) 15 gm Q15M PRN BUCCAL DECREASED GLUCOSE; Start 12/07/16 at 16:00 Simethicone (Mylicon) 80 mg QID PRN PO DISTENSION/GAS/BLOATING Last administered on 12/07/16t 20:13; Admin Dose 80 MG; Start 12/07/16 at 16:30 Assessment/Plan Chief Complaint/Hosp Course 41 yo female w hx of HTN, DM admitted with weakness, difficulty speaking in setting of elevated blood pressure. Likely hypertensive emergency. May pursue further imaging MRI Brain and MRA Head/Neck w/o contrast to eval for ischemic changes when SBP is more controlled less than 140 may benefit from ASA 81 mg daily optimize stroke risk factors check FLP and HBA1C ECHO w bubble study will follow Problems: YOLY BRAR MD Dec 08, 2016 11:39
--- NOTE | 2016-12-08 11:46 | PN ---
Date/Time of Note Date/Time of Note DATE: 12/08/16 TIME: 11:45 Assessment/Plan VTE Prophylaxis VTE Prophylaxis Intervention: ambulation Lines/Catheters IV Catheter Type (from [facility]): [place] [facility] Assessment/Plan Chief Complaint/Hosp Course 1. Transient weakness with difficulty in speech in the setting of elevated blood pressure. The patient being followed by neurology. Brain CT negative. Neck CTA negative for any hemodynamically significant carotid artery stenosis. Pending brain MRI. Obtain physical therapy evaluation 2. Hypertensive urgency. Currently the blood pressure is controlled. 3. Diabetes mellitus type 2. Hemoglobin A1c 7.3. Continue sliding scale insulin. Blood sugars well controlled. 4. Fluids, electrolytes, and nutrition. Carbohydrate controlled diet. 5. DVT prophylaxis. Ambulation. 6. Plan. Await MRI. Await physical therapy evaluation. Case discussed with Dr. Cramer. Problems: Subjective 24 Hr Interval Summary Free Text/Dictation Denies any dizziness. Complains of left shoulder pain. Exam/Review of Systems Vital Signs Vitals Vital Signs Date Time Temp Pulse Resp B/P Pulse Ox O2 Delivery O2 Flow Rate FiO2 12/08/16 08:00 87 12/08/16 07:45 97.8 18 152/97 98 12/07/16 01:24 Room Air 12/06/16 21:09 2 Intake and Output 12/07/16 12/07/16 12/08/16 15:00 23:00 07:00 Intake Total 360 ml 900 ml Balance 360 ml 900 ml Exam General: Adequately build 41 year-old female lying in bed in no apparent distress. HEENT: Normocephalic, atraumatic. Eyes: Anicteric sclerae, conjunctivae clear. ENT: Nasal septum midline, oral mucosa moist. Neck supple, no JVD noticed. Respiratory: Bilaterally clear breath sounds. No use of accessory muscles of respiration. No adventitious breath sounds. Cardiovascular: S1, S2 heard. No murmurs or gallops. Abdomen: Soft, nontender, and nondistended. Bowel sounds positive in all 4 quadrants. Genitourinary: Deferred. Extremities: No cyanosis, no clubbing, no edema. Peripheral pulses palpable. Left shoulder tenderness to palpation. Neurologic: Cranial nerves II through XII grossly intact. The patient is awake, alert, and oriented. Skin: Normal skin turgor. No skin rashes. Results Result Diagram: 12/08/1618 12/08/16 0918 Results 24 hrs Laboratory Tests Test 12/07/16 12:54 12/07/16 17:12 12/07/16 20:06 12/07/16 21:50 Bedside Glucose 88 90 112 Urine Opiates Screen Negative Urine Barbiturates Negative Urine Amphetamines Screen Negative Urine Benzodiazepines Screen Negative Urine Cocaine Screen Negative Urine Cannabinoids Negative Test 12/08/16 08:52 12/08/16 09:18 Bedside Glucose 104 White Blood Count 7.1 Red Blood Count 4.54 Hemoglobin 13.8 Hematocrit 40.7 Mean Corpuscular Volume 89.6 Mean Corpuscular Hemoglobin 30.4 Mean Corpuscular Hemoglobin Concent 33.9 Red Cell Distribution Width 12.5 Platelet Count 274 Mean Platelet Volume 10.7 H Neutrophils % 71.1 Lymphocytes % 20.8 Monocytes % 5.9 Eosinophils % 1.3 Basophils % 0.8 Nucleated Red Blood Cells % 0.0 Neutrophils # 5.1 Lymphocytes # 1.5 Monocytes # 0.4 Eosinophils # 0.1 Basophils # 0.1 Nucleated Red Blood Cells # 0.0 Sodium Level 140 Potassium Level 3.9 Chloride Level 104 Carbon Dioxide Level 27 Anion Gap 13 Blood Urea Nitrogen 13 Creatinine 0.70 Glucose Level 144 # Calcium Level 8.8 Phosphorus Level 4.0 Magnesium Level 1.9 Total Bilirubin 0.6 Direct Bilirubin 0.00 Indirect Bilirubin 0.6 Aspartate Amino Transf (AST/SGOT) 24 Alanine Aminotransferase (ALT/SGPT) 40 Alkaline Phosphatase 50 Total Protein 7.1 Albumin 4.1 Globulin 3.00 Albumin/Globulin Ratio 1.36 Thyroid Stimulating Hormone (TSH) Pending Medications Medications Current Medications Ondansetron HCl (Zofran Inj) 4 mg Q6H PRN IV NAUSEA AND/OR VOMITING; Start at 02:30 Acetaminophen (Tylenol Tab) 650 mg Q6H PRN PO PAIN LEVEL 1-3 OR FEVER Last administered on 12/08/16t 04:51; Admin Dose 650 MG; Start 12/07/16 at 02:30 Docusate Sodium (Colace) 100 mg Q12H PRN PO CONSTIPATION; Start 12/07/16 at 02 :30 Bisacodyl (Dulcolax) 5 mg DAILY PRN PO CONSTIPATION; Start 12/07/16 at 02:30 Hydralazine HCl (Apresoline) 10 mg Q4H PRN IV ELEVATED BLOOD PRESSURE; Start 12/07/16 at 02:30 Acetaminophen (Tylenol Tab) 650 mg Q4H PRN PO PAIN AND OR ELEVATED TEMP; Start 12/07/16 at 02:24 Famotidine (Pepcid) 20 mg Q12 PO Last administered on 12/08/16 08:53; Admin Dose 20 MG; Start 12/07/16 at 21:00 Diagnostic Test (Pha) (Accu-Chek) 1 ea 02 XX ; Start 12/08/16 at 02:00 Miscellaneous Information 1 ea NOTE XX ; Start 12/07/16 at 16:00 Glucose (Glutose) 15 gm Q15M PRN PO DECREASED GLUCOSE; Start 12/07/16 at 16:00 Glucose (Glutose) 22.5 gm Q15M PRN PO DECREASED GLUCOSE; Start 12/07/16 at 16: 00 Dextrose (D50w Syringe) 25 ml Q15M PRN IV DECREASED GLUCOSE; Start 12/07/16 at 16:00 Dextrose (D50w Syringe) 50 ml Q15M PRN IV DECREASED GLUCOSE; Start 12/07/16 at 16:00 Glucagon (Glucagen) 1 mg Q15M PRN IM DECREASED GLUCOSE; Start 12/07/16 at 16: 00 Glucose (Glutose) 15 gm Q15M PRN BUCCAL DECREASED GLUCOSE; Start 12/07/16 at 16:00 Simethicone (Mylicon) 80 mg QID PRN PO DISTENSION/GAS/BLOATING Last administered on 12/07/16 20:13; Admin Dose 80 MG; Start 12/07/16 at 16:30 HARSHAD FELDER NP Dec 08, 2016 11:46
--- NOTE | 2016-12-08 12:31 | RADRPT ---
PROCEDURE: MRI Brain without contrast. CLINICAL INDICATION: TIA, hypertensive emergency TECHNIQUE: Multiplanar MRI of the brain without contrast was performed on a 3.0 T scanner with the following sequences obtained: T1-weighted, T2-weighted/FLAIR, diffusion weighted (with ADC map), GR E. COMPARISON: CT brain 12/06/2016 FINDINGS: No acute/recent ischemic infarction or intracranial hemorrhage / blood degradation products are iden tified. No extra-axial fluid collection is seen. There is no mass effect. No midline shift is identified. The ventricles and sulci are within normal limits for size and configuration. Minimal scattered areas of increased T2-weighted FLAIR signal intensity are present in the deep whit e matter. Flow voids are identified in the proximal intracranial arteries and dural sinuses suggesting patency . Small left maxillary sinus mucous retention cyst is seen. IMPRESSION: 1. No evidence of acute intracranial pathology. 2. Minimal nonspecific white matter changes, which may reflect chronic small vessel ischemic change s. RPTAT: VV .Murali Galvez MD, MD Date Time Electronically viewed and signed by .Murali Galvez MD, on 12/08/2016 12:31 .O/
[2016-12-08 13:07] LABS: THYROID STIMULATING HORMONE 5.8 MIU/L (0.465-4.680)
--- NOTE | 2016-12-08 23:23 | RADRPT ---
PROCEDURE: XR Abdomen. CLINICAL INDICATION: Abdomen pain. TECHNIQUE: AP supine abdomen x-ray. COMPARISON: None. FINDINGS: The bowel gas pattern is normal with no evidence of obstruction. There is a round metal foreign body overlying the midabdomen measuring 2.3 cm in diameter. There are no abnormal calcifications overlying the urinary tracts. There are mild degenerative changes of the spine. IMPRESSION: 1. No evidence of obstruction. 2. Mild metal foreign body overlying the midabdomen measuring 2.3 cm in diameter. Clinical correlat ion advised. 3. Mild degenerative changes of the spine. 4. Otherwise normal abdomen radiograph. RPTAT: QQ .Edward Esquivel MD, MD Date Time Electronically viewed and signed by .Edward Esquivel MD, on 12/08/2016 23:22 .R/
[2016-12-09] VITALS (9 sets, daily range): BP systolic 128–149; BP diastolic 77–90; PULSE 53–89; RESP 18
[2016-12-09] MEDS: ACCU-CHEK XX SCH (01:23)
[2016-12-09 07:38] LABS: BASOPHIL # 0.1 10^3/ul (0.0-0.1); BASOPHILS % 0.8 % (0.0-2.0); EOSINOPHILS # 0.1 10^3/ul (0.0-0.5); EOSINOPHILS % 1.6 % (0.0-7.0); HEMATOCRIT 42.8 % (37.0-47.0); HEMOGLOBIN 14.1 g/dl (12.0-16.0); LYMPHOCYTES # 2.2 10^3/ul (0.8-2.9); MEAN CORPUSCULAR HEMOGLOBIN 29.4 pg (29.0-33.0); MEAN CORPUSCULAR HGB CONC 32.9 g/dl (32.0-37.0); MEAN CORPUSCULAR VOLUME 89.4 fl (82.0-101.0); MONOCYTE # 0.5 10^3/ul (0.3-0.9); MONOCYTES % 6.2 % (0.0-11.0); NEUTROPHIL # 5.1 10^3/ul (1.6-7.5); NEUTROPHILS % 64.1 % (39.0-77.0); PLATELET COUNT 294 10^3/UL (140-415); RED BLOOD COUNT 4.79 10^6/ul (4.20-5.40); RED CELL DISTRIBUTION WIDTH 12.7 % (11.5-14.5)
[2016-12-09 07:52] LABS: CREATININE 0.69 mg/dl (0.44-1.00); POTASSIUM 3.7 mmol/L (3.5-5.1)
[2016-12-09] MEDS: INSULIN ASPART [NOVOLOG] 3 ML PEN SC SCH ×6 (08:00→17:17)
[2016-12-09 08:12] LABS: PHOSPHORUS 4.3 mg/dl (2.5-4.9)
[2016-12-09] MEDS: FAMOTIDINE 20 MG TAB PO SCH (09:20)
--- NOTE | 2016-12-09 12:16 | PDOCDIS ---
Discharge Instructions DIAGNOSIS Discharge Diagnosis Hypertensive urgency. CONDITION Patient Condition: Stable HOME CARE INSTRUCTIONS: Special Diet: low fat/low chol, carbohydrate controlled FOLLOW UP/APPOINTMENTS Follow-up Plan Son Kimball MD Specialty: Internal Medicine Office Address: [address] [place], [place] [id number] Office OTHER ORDERS: Other Orders: 1. Take medications as per prescription. 2. Follow a carbohydrate controlled, low-cholesterol diet. 3. Resume activities as tolerated. 4. Follow-up with your primary care physician in 1 week. If you do not have a primary care physician, please call Dr. Son Kimball's office. HARSHAD FELDER NP Dec 09, 2016 12:16
[2016-12-09] MEDS ORDERED: ASPI-664 PO (12:18)
--- NOTE | 2016-12-09 14:20 | DS ---
Date/Time of Note Date/Time of Note DATE: 12/09/16 TIME: 14:18 Discharge Summary Admission/Discharge Info Admit Date/Time Dec 06, 2016 at 23:24 Discharge Date/Time Discharge Diagnosis 1. Transient weakness with difficulty in speech in the setting of elevated blood pressure. 2. Hypertensive urgency. 3. Diabetes mellitus type 2. Patient Condition: Stable Consults Lisa Fajardo MD, Neurology. Procedures Brain MRI IMPRESSION: 1. No evidence of acute intracranial pathology. 2. Minimal nonspecific white matter changes, which may reflect chronic small vessel ischemic changes. CT Angiogram of the Head and Neck IMPRESSION: Unremarkable CT angiogram of the head and neck. No hemodynamically significant carotid stenosis. During measurements of vessel diameter was made in reference to measurements of the distal internal carotid artery diameter. Hx of Present Illness Chief complaint: Headache and dizziness This a 41-year-old female who stated that she started getting a dull headache and dizziness and felt like her blood pressure was high. She took her blood pressure at home and had a blood pressure of 167/97. Patient told her to take her to the ER. The patient walked into the emergency room and when she got into triage she suddenly became weak and she could not speak. She was taken back to room 9 where her blood pressure is found to be 184/132 and the patient was having her eyes closed and not conversing much with some tears. She said she could not speak. She is conveyed this by nodding when asking questions. She says she did not have a headache did not have any pain but that she could not talk and felt weak. A code stroke was called. As per telemetry neurology this may be hypertensive encephalopathy. There was nonspecific findings hyperdensity in her vascular on CAT scan the recommendation was to perform a CT of the head and neck to exclude any vertebrobasilar disease. Allergies: NKDA Medications: See MAR Hospital Course The patient was admitted to inpatient setting. A neurology consult was obtained. The patient underwent extensive evaluation including imaging studies. All the patient's imaging studies were negative. Therefore, it was concluded that the patient's symptomatology was probably secondary to her hypertensive urgency. The patient's blood pressure was gradually controlled to obtain optimal blood pressure levels. The patient was seen and evaluated by physical therapy. Physical therapy recommended home health PT. The patient has underlying type 2 diabetes mellitus. The patient was maintained on sliding scale insulin with well-controlled blood sugars throughout the patient's hospital course. The patient's hemoglobin A1c was found to be 7.3. The patient did not have any significant dyslipidemia. The patient is back to her baseline. The patient is stable to be discharged home to be followed up with outpatient internal medicine. The patient denied any complaints at the time of discharge. Discharge Instructions 1. Take medications as per prescription. 2. Follow a carbohydrate controlled, low-cholesterol diet. 3. Resume activities as tolerated. 4. Follow-up with your primary care physician in 1 week. If you do not have a primary care physician, please call Dr. Son Kimball's office. The patient verbalized understanding of her discharge instructions At this time I would like to thank for seeing the patient and providing clinical recommendations. Case discussed with Dr. Cramer. Home Meds Active Scripts Aspirin* (Aspirin* EC) 81 Mg Tablet., 81 MG PO DAILY, #30 TAB Prov:HARSHAD FELDER NP 12/09/16 Lisinopril* (Lisinopril*) 10 Mg Tablet, 10 MG PO DAILY, #30 TAB Prov:PEPPER ALVAREZ MD 10/06/16 Reported Medications Sitagliptin Phos/Metformin HCl (Janumet 50-500 mg Tablet) 1 Each Tablet, 1 EACH PO BID, TAB 12/06/16 Discontinued Reported Medications Ibuprofen* (Advil*) 200 Mg Capsule, 200 MG PO Q6H Y for PAIN, CAP 10/06/16 Discontinued Scripts Ibuprofen* (Motrin*) 600 Mg Tab, 600 MG PO Q6, #30 TAB Prov:ROHITH STEPHEN 11/12/16 Metformin* (Glucophage*) 500 Mg Tab, 500 MG PO DAILY, #20 TAB Prov:PEPPER ALVAREZ MD 10/06/16 Follow-up Plan Son Kimball MD Specialty: Internal Medicine Office Address: [address] [place] [address] Office Primary Care Provider Tremaine Lord Time spent on discharge: > 30 minutes Pending Labs Laboratory Tests Test 12/08/16 17:51 12/08/16 20:31 12/09/16 07:05 12/09/16 08:35 Bedside Glucose 136mg/dL (70-220) 133mg/dL (70-220) 108mg/dL (70-220) White Blood Count 8.010^3/ul (4.8-10.8) Red Blood Count 4.7910^6/ul (4.20-5.40) Hemoglobin 14.1g/dl (12.0-16.0) Hematocrit 42.8% (37.0-47.0) Mean Corpuscular Volume 89.4fl (82.0-101.0) Mean Corpuscular Hemoglobin 29.4pg (29.0-33.0) Mean Corpuscular Hemoglobin Concent 32.9g/dl (32.0-37.0) Red Cell Distribution Width 12.7% (11.5-14.5) Platelet Count 64096^3/UL (140-415) Mean Platelet Volume 11.0fl (7.4-10.4) Neutrophils % 64.1% (39.0-77.0) Lymphocytes % 27.0% (15.0-51.0) Monocytes % 6.2% (0.0-11.0) Eosinophils % 1.6% (0.0-7.0) Basophils % 0.8% (0.0-2.0) Nucleated Red Blood Cells % 0.0/100WBC (0.0-0.0) Neutrophils # 5.110^3/ul (1.6-7.5) Lymphocytes # 2.210^3/ul (0.8-2.9) Monocytes # 0.510^3/ul (0.3-0.9) Eosinophils # 0.110^3/ul (0.0-0.5) Basophils # 0.110^3/ul (0.0-0.1) Nucleated Red Blood Cells # 0.010^3/ul (0.0-0.0) Sodium Level 142mmol/L (135-144) Potassium Level 3.7mmol/L (3.5-5.1) Chloride Level 104mmol/L (97-110) Carbon Dioxide Level 29mmol/L (21-31) Anion Gap 13 (8-16) Blood Urea Nitrogen 13mg/dl (7-20) Creatinine 0.69mg/dl (0.44-1.00) Glucose Level 96mg/dl (70-220) Calcium Level 9.0mg/dl (8.4-10.2) Phosphorus Level 4.3mg/dl (2.5-4.9) Magnesium Level 2.0mg/dl (1.7-2.5) Test 12/09/16 13:03 Bedside Glucose 96mg/dL (70-220) HARSHAD FELDER NP Dec 09, 2016 14:20
== END 2016-12-09 18:03 | disposition home or self-care (01) | DRG 305 ==
LOC: E/R 20:06 → MS4 23:24
PROVIDERS: ADMIT Family Medicine; ATTEND Family Medicine
DX: I16.0 Hypertensive urgency (principal); E11.9 Type 2 diabetes mellitus without complications; I10 Essential (primary) hypertension; E78.5 Hyperlipidemia, unspecified; Z79.84 Long term (current) use of oral hypoglycemic drugs
CPT/HCPCS: 36415; 70450; 70496; 70498; 70551; 71010; 74000; 80048; 80053; 80061; 80076; 80307; 82962; 83036; 83735; 84100; 84439; 84443; 84484; 84703; 85025; 85610; 85730; 92610; 93005; 96361; 96374; 97116; 97162; 97166; 97530; J1815; J7030; Q9967

== ENCOUNTER 2016-12-19 22:40 | Emergency (ER) | payer OTHER ==
[~2016-12-19] VITALS: Ht 157.5 cm; Wt 68.6 kg
[~2016-12-19 22:40] MED LIST changes: +ASPI-664 PO; -IBUP-1542 PO; -IBUP200C11 PO; -METF500T4 PO; +SITA1TAB PO
[2016-12-19 22:55] VITALS: Ht 157.5 cm; Wt 68.6 kg
[2016-12-19 23:38] VITALS: TEMP 98.4
[2016-12-20 00:32] LABS: URINE BLOOD (Dip) POC Negative (NEGATIVE)
--- NOTE | 2016-12-20 00:32 | RADRPT ---
PROCEDURE: Portable chest x-ray. CLINICAL INDICATION: Stroke. TECHNIQUE: Portable AP view of the chest. COMPARISON: 05/27/2014. FINDINGS: No pulmonary edema or conolidation is identified. The cardiac silhouette is magnified. No pleural effusion is seen. There is no pneumothorax. IMPRESSION: 1. No evidence of acute cardiopulmonary disease. RPTAT: HTAR .Antione Larsen MD, Date Time Electronically viewed and signed by .Antione Larsen MD, on 12/20/2016 00:32 .R/
[2016-12-20 00:58] LABS: INR 1.03; PARTIAL THROMBOPLASTIN TIME 20.7 Sec (25.0-35.0); PROTIME 13.5 Sec (12.2-14.2); PT RATIO 1.1
--- NOTE | 2016-12-20 01:02 | RADRPT ---
PROCEDURE: Noncontrast CT Head. CLINICAL INDICATION: Dizzyness TECHNIQUE: Noncontrast CT of the head was obtained. The administered radiation dose was CTDI vol = 45 mGy, DLP = 720.2 mGy-cm. One or more of the following dose reduction techniques were used: automa yazan exposure control, adjustment of the mA and/or kV according to patient size and/or use of iterati ve reconstruction technique. COMPARISON: 12/06/2016 FINDINGS: The ventricles and sulci are within normal limits. There is no acute intracranial hemorrhage or ext ra-axial fluid collection. There is no mass effect. No midline shift is identified. There is no loss of domingo-white differentiation to suggest acute infarction. The orbits are within normal limits. The paranasal sinuses and mastoid air cells are without fluid. No destructive osseous lesion is identified. IMPRESSION: No acute findings. RPTAT: HIKT .Douglas Haas MD, MD Date Time Electronically viewed and signed by .Douglas Haas MD, on 12/20/2016 01:01 .T/
[2016-12-20 01:03] LABS: ALANINE AMINOTRANSFERASE 32 IU/L (13-69); ALBUMIN 3.8 g/dl (3.3-4.9); ALBUMIN/GLOBULIN RATIO 1.11; ALKALINE PHOSPHATASE 49 IU/L (42-121); ANION GAP 12 (8-16); ASPARTATE AMINO TRANSFERASE 19 IU/L (15-46); BILIRUBIN,INDIRECT 0.1 mg/dl (0-1.1); BILIRUBIN,TOTAL 0.1 mg/dl (0.2-1.3); BLOOD UREA NITROGEN 12 mg/dl (7-20); CALCIUM 9.3 mg/dl (8.4-10.2); CARBON DIOXIDE 29 mmol/L (21-31); CHLORIDE 106 mmol/L (97-110); CREATININE 0.67 mg/dl (0.44-1.00); GLUCOSE 100 mg/dl (70-220); SODIUM 143 mmol/L (135-144); TOTAL PROTEIN 7.2 g/dl (6.1-8.1)
[2016-12-20 01:13] LABS: TROPONIN-I < 0.012 ng/ml (0.00-0.12)
[2016-12-20 01:32] LABS: ADD UMIC NO; UR ASCORBIC ACID NEGATIVE (NEGATIVE); UR BILIRUBIN (Dip) NEGATIVE (NEGATIVE); UR BLOOD (Dip) NEGATIVE (NEGATIVE); UR CLARITY CLEAR (CLEAR); UR COLOR COLORLESS (YELLOW); UR GLUCOSE (Dip) NEGATIVE (NEGATIVE); UR KETONES (Dip) NEGATIVE (NEGATIVE); UR LEUKOCYTE ESTERASE (Dip) NEGATIVE Leu/ul (NEGATIVE); UR NITRITE (Dip) NEGATIVE (NEGATIVE); UR SPECIFIC GRAVITY (Dip) 1.004 (1.003-1.030); UR TOTAL PROTEIN (Dip) NEGATIVE (NEGATIVE); UR UROBILINOGEN (Dip) NEGATIVE (NEGATIVE)
[2016-12-20 01:45] LABS: BASOPHIL # 0.1 10^3/ul (0.0-0.1); BASOPHILS % 0.8 % (0.0-2.0); EOSINOPHILS # 0.2 10^3/ul (0.0-0.5); EOSINOPHILS % 2.4 % (0.0-7.0); HEMATOCRIT 37.2 % (37.0-47.0); HEMOGLOBIN 12.3 g/dl (12.0-16.0); LYMPHOCYTES % 26.6 % (15.0-51.0); MEAN CORPUSCULAR HEMOGLOBIN 29.2 pg (29.0-33.0); MEAN CORPUSCULAR HGB CONC 33.1 g/dl (32.0-37.0); MEAN CORPUSCULAR VOLUME 88.4 fl (82.0-101.0); MONOCYTE # 0.5 10^3/ul (0.3-0.9); MONOCYTES % 6.8 % (0.0-11.0); NEUTROPHIL # 4.7 10^3/ul (1.6-7.5); NEUTROPHILS % 63.1 % (39.0-77.0); PLATELET COUNT 260 10^3/UL (140-415); RED BLOOD COUNT 4.21 10^6/ul (4.20-5.40); RED CELL DISTRIBUTION WIDTH 12.8 % (11.5-14.5); WHITE BLOOD COUNT 7.5 10^3/ul (4.8-10.8)
--- NOTE | 2016-12-20 02:55 | ERD ---
ER Documentation Chief Complaint Chief Complaint CARDENAS,dizzy,nausea,body numbness this am. Elevated BP. hx of TIA 2 wks ago HPI 41-year-old female comes in with complaint of headache dizziness nausea body numbness this a.m. She is noted to have elevated blood pressure. Patient says she had a TIA a few weeks ago. Blood pressures have been difficult to control for the patient states she is compliant with her lisinopril. No other current complaints at this time. ROS All systems reviewed and are negative except as per history of present illness. Medications Home Meds Active Scripts Aspirin* (Aspirin* EC) 81 Mg Tablet.dr, 81 MG PO DAILY, #30 TAB Prov:HARSHAD FELDER NP 12/09/16 Lisinopril* (Lisinopril*) 10 Mg Tablet, 10 MG PO DAILY, #30 TAB Prov:PEPPER ALVAREZ MD 10/06/16 Reported Medications Sitagliptin Phos/Metformin HCl (Janumet 50-500 mg Tablet) 1 Each Tablet, 1 EACH PO BID, TAB 12/06/16 Allergies Allergies: Coded Allergies: No Known Allergies (Verified Allergy, Mild, 12/19/16) PMhx/Soc History of Surgery: No Anesthesia Reaction: No Hx Neurological Disorder: Yes (Blood clot in the brain 2 wks ago) Hx Respiratory Disorders: No Hx Cardiac Disorders: Yes (HTN) Hx Psychiatric Problems: No Hx Miscellaneous Medical Probl: Yes (DM 2) Hx Alcohol Use: No Hx Substance Use: No Hx Tobacco Use: No Smoking Status: Never smoker Physical Exam Vitals Vital Signs Date Time Temp Pulse Resp B/P Pulse Ox O2 Delivery O2 Flow Rate FiO2 12/19/16 23:38 98.4 79 19 160/97 97 Room Air 12/19/16 22:55 98.2 87 18 184/94 96 Physical Exam Const: [] Head: Atraumatic Eyes: Normal Conjunctiva ENT: Normal External Ears, Nose and Mouth. Neck: Full range of motion..~ No meningismus. Resp: Clear to auscultation bilaterally Cardio: Regular rate and rhythm, no murmurs Abd: Soft, non tender, non distended. Normal bowel sounds Skin: No petechiae or rashes Back: No midline or flank tenderness Ext: No cyanosis, or edema Neur: Awake and alert Psych: Normal Mood and Affect Result Diagram: 12/20/16 0130 12/20/16 0025 Results 24 hrs Laboratory Tests Test 12/20/16 00:09 12/20/16 00:15 12/20/16 00:25 12/20/16 00:29 Bedside Glucose 114mg/dL Urine Color COLORLESS Urine Clarity CLEAR Urine pH 6.0 Urine Specific [place] 1.004 Urine Ketones NEGATIVEmg/dL Urine Nitrite NEGATIVEmg/dL Urine Bilirubin NEGATIVEmg/dL Urine Urobilinogen NEGATIVEmg/dL Urine Leukocyte Esterase NEGATIVELeu/ul Urine Hemoglobin NEGATIVEmg/dL Urine Glucose NEGATIVEmg/dL Urine Total Protein NEGATIVEmg/dl Prothrombin Time 13.5Sec Prothrombin Time Ratio 1.1 INR International Normalized Ratio 1.03 Activated Partial Thromboplast Time 20.7Sec Sodium Level 143mmol/L Potassium Level 4.0mmol/L Chloride Level 106mmol/L Carbon Dioxide Level 29mmol/L Anion Gap 12 Blood Urea Nitrogen 12mg/dl Creatinine 0.67mg/dl Glucose Level 100mg/dl Calcium Level 9.3mg/dl Total Bilirubin 0.1mg/dl Direct Bilirubin 0.00mg/dl Indirect Bilirubin 0.1mg/dl Aspartate Amino Transf (AST/SGOT) 19IU/L Alanine Aminotransferase (ALT/SGPT) 32IU/L Alkaline Phosphatase 49IU/L Troponin I < 0.012ng/ml Total Protein 7.2g/dl Albumin 3.8g/dl Globulin 3.40g/dl Albumin/Globulin Ratio 1.11 Bedside Urine pH (LAB) 6.0 Bedside Urine Protein (LAB) Negative Bedside Urine Glucose (UA) Negative Bedside Urine Ketones (LAB) Negative Bedside Urine Blood Negative Bedside Urine Nitrite (LAB) Negative Bedside Urine Leukocyte Esterase (L Negative Test 12/20/16 01:30 White Blood Count 7.510^3/ul Red Blood Count 4.2110^6/ul Hemoglobin 12.3g/dl Hematocrit 37.2% Mean Corpuscular Volume 88.4fl Mean Corpuscular Hemoglobin 29.2pg Mean Corpuscular Hemoglobin Concent 33.1g/dl Red Cell Distribution Width 12.8% Platelet Count 16535^3/UL Mean Platelet Volume 11.0fl Neutrophils % 63.1% Lymphocytes % 26.6% Monocytes % 6.8% Eosinophils % 2.4% Basophils % 0.8% Nucleated Red Blood Cells % 0.0/100WBC Neutrophils # 4.710^3/ul Lymphocytes # 2.010^3/ul Monocytes # 0.510^3/ul Eosinophils # 0.210^3/ul Basophils # 0.110^3/ul Nucleated Red Blood Cells # 0.010^3/ul Hemoglobin A1c 6.5% Procedures/MDM EKG: Rate/Rhythm: [Normal Sinus Rhythm] QRS, ST, T-waves: [No changes consistent w/ acute ischemia] Impression: [No evidence of ischemia or arrhythmia] Chest X-ray 1V Interpreted by me: Soft Tissue: No acute abnormalities Bones: No acute abnormalities Mediastinum/Cardiac Silhouette/Lungs: [No acute abnormalities] Patient's blood pressure was elevated (>120/80) but appears stable without evidence of hypertension emergency or urgency. The patient was counseled about the risks of hypertension and urged to pursue outpatient monitoring and therapy within a week with their primary care physician. Patient likely has a component of anxiety as well. Will be discharged home to follow-up with PCP. Departure Diagnosis: Primary Impression: Hypertension Hypertension type: unspecified Qualified Code: I10 - Hypertension, unspecified type Additional Impression: Anxiety attack Condition: Stable CASSIE LOZANO Dec 20, 2016 02:55
[2016-12-20] MEDS ORDERED: CLON-379 PO (02:56)
[2016-12-20 03:27] LABS: BARBITURATES Negative (NEGATIVE); BENZODIAZEPINES Negative (NEGATIVE); CANNABINOIDS Negative (NEGATIVE); COCAINE Negative (NEGATIVE); OPIATES Negative (NEGATIVE)
[2016-12-20 03:33] VITALS: BP 148/91; PULSE 96; RESP 16
== END 2016-12-20 03:41 | disposition home or self-care (01) ==
LOC: E/R 22:40
DX: I10 Essential (primary) hypertension (principal); F41.9 Anxiety disorder, unspecified; E11.9 Type 2 diabetes mellitus without complications; R07.9 Chest pain, unspecified; Z79.82 Long term (current) use of aspirin; Z79.84 Long term (current) use of oral hypoglycemic drugs
CPT/HCPCS: 70450; 71010; 80053; 80307; 81003; 82962; 83036; 84484; 85025; 85610; 85730; 93005; Z7502

== ENCOUNTER 2017-02-24 07:39 | Emergency (ER) | END 2017-02-24 12:55 | disposition home or self-care (01) ==

== ENCOUNTER 2017-03-22 21:42 | Emergency (ER) | END 2017-03-23 02:25 | disposition left against medical advice (07) ==

== ENCOUNTER 2017-04-28 02:23 | Emergency (ER) | END 2017-04-28 06:30 | disposition home or self-care (01) ==

== ENCOUNTER 2017-05-15 21:52 | Emergency (ER) | END 2017-05-16 03:47 | disposition home or self-care (01) ==

== ENCOUNTER 2017-07-31 03:41 | Inpatient (IN) | END 2017-08-02 15:10 | disposition home health service (06) | DRG 305 ==

== ENCOUNTER 2017-08-28 21:03 | Emergency (ER) | END 2017-08-29 06:19 | disposition home or self-care (01) ==

== ENCOUNTER 2017-09-04 21:02 | Emergency (ER) | END 2017-09-05 05:59 | disposition home or self-care (01) ==

== ENCOUNTER 2017-09-16 21:18 | Inpatient (IN) | END 2017-09-22 17:05 | disposition home or self-care (01) | DRG 418 ==

== ENCOUNTER 2017-09-28 13:45 | Emergency (ER) | END 2017-09-28 18:14 | disposition home or self-care (01) ==

== ENCOUNTER 2017-10-25 10:13 | Emergency (ER) | END 2017-10-25 14:37 | disposition home or self-care (01) ==

== ENCOUNTER 2017-11-25 09:54 | Emergency (ER) | END 2017-11-25 12:50 | disposition home or self-care (01) ==

== ENCOUNTER 2018-01-16 01:26 | Observation (INO) | END 2018-01-18 11:52 | disposition home or self-care (01) ==

== ENCOUNTER 2018-02-08 20:06 | Emergency (ER) | END 2018-02-09 01:44 | disposition home or self-care (01) ==

== ENCOUNTER 2018-03-04 21:40 | Emergency (ER) | payer OTHER ==
[~2018-03-04] VITALS: Ht 157.5 cm; Wt 73.7 kg
[~2018-03-04 21:40] MED LIST changes: -ASPI-664 PO; +ASPI-817 PO; +LISI-471 PO; -LISI10TA2 PO; +METF-849 PO; +PANT40TA3 PO; -SITA1TAB PO
[2018-03-04 21:44] VITALS: Ht 157.5 cm; Wt 73.7 kg
[2018-03-05] MEDS ORDERED: hydrALAzine 20 MG INJ IV ONE
[2018-03-05] MEDS ORDERED: LORAZEPAM 2 MG INJ IV ONE (01:30)
[2018-03-05] MEDS ORDERED: HYDR-3671 PO (03:13)
[2018-03-05 06:12] VITALS: BP 128/89; PULSE 91; RESP 18
--- NOTE | 2018-03-14 23:55 | ERD ---
ER Documentation Chief Complaint Chief Complaint states high blood pressure at home HPI Is a 43-year female comes in because he states high blood pressure at home. Denies fevers chills nausea vomiting denies chest pain. Denies headache. Denies focal neurological complaints. ROS All systems reviewed and are negative except as per history of present illness. Medications Home Meds Active Scripts Tramadol HCl (Tramadol HCl) 50 Mg Tablet, 50 MG PO Q4 PRN for PAIN, #20 TAB Prov:JUAN DIEGOPATELCASSIE S. 03/08/18 Sulfamethoxazole/Trimethoprim* (Bactrim Ds* Tablet) 1 Each Tablet, 1 TAB PO BID, #14 TAB Prov:ROSSJEANIECASSIE S. 03/08/18 Hydralazine Hcl* (Hydralazine Hcl*) 25 Mg Tab, 25 MG PO Q6H PRN for ELEVATED SYSTOLIC BP, #60 TAB Prov:CASSIE LOZANO S. 03/05/18 Pantoprazole* (Protonix*) 40 Mg Tablet., 40 MG PO DAILY, #30 TAB Prov:SOLA REESE V. ROUTE SERVICE REPRESENTATIVE 01/17/18 Metformin* (Glucophage*) 500 Mg Tab, 500 MG PO WITH BREAKFAST, #30 TAB Prov:REESEANANTHSOLA V. ROUTE SERVICE REPRESENTATIVE 01/17/18 Lisinopril* (Lisinopril*) 20 Mg Tablet, 20 MG PO DAILY, #30 TAB Prov:HARSHAD FELDER [employer]TE SERVICE REPRESENTATIVE 08/02/17 Reported Medications Aspirin* (Aspirin* EC) 81 Mg Tablet.dr, 81 MG PO DAILY, TAB 02/08/18 Allergies Allergies: Coded Allergies: No Known Allergies (Unverified Allergy, Mild, 03/08/18) PMhx/Soc History of Surgery: Yes (Cholecysectomy, Gall bladdder) Anesthesia Reaction: No Hx Neurological Disorder: Yes (occassional numbness in both legs) Hx Respiratory Disorders: Yes (Asthma) Hx Cardiac Disorders: Yes (Stroke x3, HTN) Hx Psychiatric Problems: Yes (depression and anxiety) Hx Miscellaneous Medical Probl: No Hx Alcohol Use: Yes Hx Substance Use: No Hx Tobacco Use: No Smoking Status: Never smoker Physical Exam Physical Exam Const: No acute distress Head: Atraumatic Eyes: Normal Conjunctiva ENT: Normal External Ears, Nose and Mouth. Neck: Full range of motion. No meningismus. Resp: Clear to auscultation bilaterally Cardio: Regular rate and rhythm, no murmurs Abd: Soft, non tender, non distended. Normal bowel sounds Skin: No petechiae or rashes Back: No midline or flank tenderness Ext: No cyanosis, or edema Neur: Awake and alert Psych: Normal Mood and Affect Results 24 hrs Laboratory Tests Test 03/04/18 23:54 03/05/18 06:00 White Blood Count 7.3 10^3/ul Red Blood Count 4.72 10^6/ul Hemoglobin 13.8 g/dl Hematocrit 40.9 % Mean Corpuscular Volume 86.7 fl Mean Corpuscular Hemoglobin 29.2 pg Mean Corpuscular Hemoglobin Concent 33.7 g/dl Red Cell Distribution Width 12.7 % Platelet Count 292 10^3/UL Mean Platelet Volume 10.9 fl Immature Granulocytes % 0.100 % Neutrophils % 65.9 % Lymphocytes % 25.1 % Monocytes % 6.7 % Eosinophils % 1.5 % Basophils % 0.7 % Nucleated Red Blood Cells % 0.0 /100WBC Immature Granulocytes # 0.010 10^3/ul Neutrophils # 4.8 10^3/ul Lymphocytes # 1.8 10^3/ul Monocytes # 0.5 10^3/ul Eosinophils # 0.1 10^3/ul Basophils # 0.1 10^3/ul Nucleated Red Blood Cells # 0.0 10^3/ul Sodium Level 142 mmol/L Potassium Level 3.8 mmol/L Chloride Level 103 mmol/L Carbon Dioxide Level 28 mmol/L Anion Gap 11 Blood Urea Nitrogen 14 mg/dl Creatinine 0.55 mg/dl Est Glomerular Filtrat Rate mL/min > 60 mL/min Glucose Level 199 mg/dl Calcium Level 9.3 mg/dl Troponin I < 0.012 ng/ml < 0.012 ng/ml Creatine Kinase 41 IU/L Creatine Kinase Index 0.9 Creatinine Kinase MB (Mass) 0.35 ng/ml Current Medications Medications Dose Sig/Patty Start Time Status Last (Trade) Ordered Route PRN Stop Time Admin Dose Reason Admin Hydralazine 10 mg ONCE ONCE 03/05/18 DC 03/05/18 HCl IV 00:00 00:01 (Apresoline) 03/05/18 00:01 Lorazepam 1 mg ONCE ONCE 03/05/18 DC 03/05/18 (Ativan) IV 01:30 01:47 03/05/18 01:42 Procedures/MDM EKG: Rate/Rhythm: [Normal Sinus Rhythm] QRS, ST, T-waves: [No changes consistent w/ acute ischemia] Impression: [No evidence of ischemia or arrhythmia] Chest X-ray 1V Interpreted by me: Soft Tissue: No acute abnormalities Bones: No acute abnormalities Mediastinum/Cardiac Silhouette/Lungs: [No acute abnormalities] Patient's thoracic symptoms have stabilized while in the department and are stable for outpatient follow up. Exam and work up not consistent w/ ischemia, arrhythmia, PE or dissection. Departure Diagnosis: Primary Impression: Hypertension Hypertension type: unspecified Qualified Codes: I10 - Essential (primary) hypertension Condition: Stable Patient Instructions: Hypertension, Established CASSIE LOZANO Mar 14, 2018 23:55
== END 2018-03-05 08:28 | disposition home or self-care (01) ==
LOC: E/R 21:40
DX: I10 Essential (primary) hypertension (principal); J45.909 Unspecified asthma, uncomplicated; R51 Headache; Z79.82 Long term (current) use of aspirin; Z79.84 Long term (current) use of oral hypoglycemic drugs
CPT/HCPCS: 70450; 71045; 80048; 82550; 82553; 84484; 85025; 93005; J0360; J2060; 36415; 96374; 96375

== ENCOUNTER 2018-03-07 21:29 | Emergency (ER) | payer OTHER ==
[~2018-03-07] VITALS: Ht 157.5 cm; Wt 73.6 kg
[~2018-03-07 21:29] MED LIST changes: +HYDR-3671 PO
[2018-03-07 21:35] VITALS: Ht 157.5 cm; Wt 73.6 kg
[2018-03-08] MEDS ORDERED: ONDANSETRON 4 MG INJ IV STA (01:33)
[2018-03-08] MEDS ORDERED: morphine 4 MG/ML VIAL IV STA (01:33)
--- NOTE | 2018-03-08 02:22 | ERD ---
ER Documentation Chief Complaint Chief Complaint high blood pressure at home, also c/o left abd pain HPI 43-year-old female comes in with high blood pressure at home and lower abdominal pain as well. She said dysuria as well. No fevers no chills. No other current complaints. She noted her blood pressure was elevated but she thinks is because she was in pain. Denies chest pain. Denies any other current issues. ROS All systems reviewed and are negative except as per history of present illness. Medications Home Meds Active Scripts Hydralazine Hcl* (Hydralazine Hcl*) 25 Mg Tab, 25 MG PO Q6H PRN for ELEVATED SYSTOLIC BP, #60 TAB Prov:CASSIE LOZANO 03/05/18 Pantoprazole* (Protonix*) 40 Mg Tablet., 40 MG PO DAILY, #30 TAB Prov:REESESOLA V. SECONDARY SCHOOL PRINCIPAL 01/17/18 Metformin* (Glucophage*) 500 Mg Tab, 500 MG PO WITH BREAKFAST, #30 TAB Prov:REESESOLA V. SECONDARY SCHOOL PRINCIPAL 01/17/18 Lisinopril* (Lisinopril*) 20 Mg Tablet, 20 MG PO DAILY, #30 TAB Prov:HARSHAD FELDER [employer] SCHOOL PRINCIPAL 08/02/17 Reported Medications Aspirin* (Aspirin* EC) 81 Mg Tablet., 81 MG PO DAILY, TAB 02/08/18 Allergies Allergies: Coded Allergies: No Known Allergies (Unverified Allergy, Mild, 03/08/18) PMhx/Soc History of Surgery: Yes (Cholecysectomy, Gall bladdder) Anesthesia Reaction: No Hx Neurological Disorder: Yes (occassional numbness in both legs) Hx Respiratory Disorders: Yes (Asthma) Hx Cardiac Disorders: Yes (Stroke x3, HTN) Hx Psychiatric Problems: Yes (depression and anxiety) Hx Miscellaneous Medical Probl: No Hx Alcohol Use: Yes (Occasional) Hx Substance Use: No Hx Tobacco Use: No Smoking Status: Current every day smoker Physical Exam Vitals Vital Signs Date Temp Pulse Resp B/P (MAP) Pulse Ox O2 O2 Flow FiO2 Time Delivery Rate 03/08/18 97.6 89 16 161/104 97 Room Air 01:31 (123) 03/07/18 98.0 82 18 182/89 98 21:35 (120) Physical Exam Const: No acute distress Head: Atraumatic Eyes: Normal Conjunctiva ENT: Normal External Ears, Nose and Mouth. Neck: Full range of motion. No meningismus. Resp: Clear to auscultation bilaterally Cardio: Regular rate and rhythm, no murmurs Abd: Soft, non tender, non distended. Normal bowel sounds Skin: No petechiae or rashes Back: No midline or flank tenderness Ext: No cyanosis, or edema Neur: Awake and alert Psych: Normal Mood and Affect Result Diagram: 03/08/18 0122 03/08/18 0122 Results 24 hrs Laboratory Tests Test 03/08/18 01:08 03/08/18 01:09 03/08/18 01:22 POC Beta HCG, Qualitative NEGATIVE Urine Color YELLOW Urine Clarity SLIGHTLY CLOUDY Urine pH 5.0 Urine Specific [place] 1.028 Urine Ketones NEGATIVE mg/dL Urine Nitrite NEGATIVE mg/dL Urine Bilirubin NEGATIVE mg/dL Urine Urobilinogen NEGATIVE mg/dL Urine Leukocyte Esterase TRACE Pepper/ul Urine Microscopic RBC 0 /HPF Urine Microscopic WBC 5 /HPF Urine Squamous Epithelial Cells FEW /HPF Urine Bacteria FEW /HPF Urine Hemoglobin NEGATIVE mg/dL Urine Glucose 1+ mg/dL Urine Total Protein NEGATIVE mg/dl White Blood Count 7.5 10^3/ul Red Blood Count 4.64 10^6/ul Hemoglobin 13.4 g/dl Hematocrit 40.2 % Mean Corpuscular Volume 86.6 fl Mean Corpuscular Hemoglobin 28.9 pg Mean Corpuscular 33.3 g/dl Hemoglobin Concent Red Cell Distribution Width 12.6 % Platelet Count 304 10^3/UL Mean Platelet Volume 10.7 fl Immature Granulocytes % 0.300 % Neutrophils % 62.7 % Lymphocytes % 26.4 % Monocytes % 7.2 % Eosinophils % 2.7 % Basophils % 0.7 % Nucleated Red Blood Cells % 0.0 /100WBC Immature Granulocytes # 0.020 10^3/ul Neutrophils # 4.7 10^3/ul Lymphocytes # 2.0 10^3/ul Monocytes # 0.5 10^3/ul Eosinophils # 0.2 10^3/ul Basophils # 0.1 10^3/ul Nucleated Red Blood Cells # 0.0 10^3/ul Sodium Level 141 mmol/L Potassium Level 3.9 mmol/L Chloride Level 102 mmol/L Carbon Dioxide Level 29 mmol/L Anion Gap 10 Blood Urea Nitrogen 15 mg/dl Creatinine 0.59 mg/dl Est Glomerular Filtrat > 60 mL/min Rate mL/min Glucose Level 148 mg/dl Calcium Level 9.9 mg/dl Total Bilirubin 0.2 mg/dl Direct Bilirubin 0.00 mg/dl Indirect Bilirubin 0.2 mg/dl Aspartate Amino 56 IU/L Transf (AST/SGOT) Alanine 84 IU/L Aminotransferase (ALT/SGPT) Alkaline Phosphatase 78 IU/L Troponin I < 0.012 ng/ml Total Protein 7.6 g/dl Albumin 4.5 g/dl Globulin 3.10 g/dl Albumin/Globulin Ratio 1.45 Lipase 68 U/L Current Medications Medications Dose Sig/Patty Start Time Status Last (Trade) Ordered Route PRN Stop Time Admin Dose Reason Admin Morphine 4 mg ONCE STAT 03/08/18 DC 03/08/18 Sulfate IV 01:33 01:44 (morphine) 03/08/18 01:34 Ondansetron 4 mg ONCE STAT 03/08/18 DC 03/08/18 HCl (Zofran IV 01:33 01:44 Inj) 03/08/18 01:34 Procedures/MDM Medical decision makin-year-old female with lower abdominal pain and complaints of dysuria frequency and urgency. No acute intra-abdominal process noted on CAT scan. Stable for trial of outpatient management with antibiotics and pain meds. Culture sent off for urinalysis. Patient's gastrointestinal symptoms have stabilized while in the department. No evidence of severe dehydration, sepsis, or surgical abdomen. Extensive discussion with family and patient that occult disease cannot be ruled out. 8 hour recheck for repeat abdominal exam is planned. Departure Diagnosis: Primary Impression: UTI (urinary tract infection) Urinary tract infection type: site unspecified Hematuria presence: without hematuria Qualified Codes: N39.0 - Urinary tract infection, site not specified Additional Impression: Hypertension Hypertension type: unspecified Qualified Codes: I10 - Essential (primary) hypertension Condition: Stable CASSIE LOZANO Mar 08, 2018 02:22
[2018-03-08] MEDS ORDERED: TRAM50TA2 PO (02:23)
[2018-03-08] MEDS ORDERED: SULF1TAB31 PO (02:23)
[2018-03-08 02:54] VITALS: BP 174/98; PULSE 84; RESP 15
== END 2018-03-08 02:54 | disposition home or self-care (01) ==
LOC: E/R 21:29
DX: N39.0 Urinary tract infection, site not specified (principal); I10 Essential (primary) hypertension; J45.909 Unspecified asthma, uncomplicated; F17.210 Nicotine dependence, cigarettes, uncomplicated; Z79.82 Long term (current) use of aspirin; Z86.73 Personal history of transient ischemic attack (TIA), and cerebral infarction without residual deficits; Z79.84 Long term (current) use of oral hypoglycemic drugs
CPT/HCPCS: 36415; 71045; 74176; 80053; 81001; 81025; 83690; 84484; 85025; 93005; 96374; 96375; J2270; J2405; Z7502; Z7610

== ENCOUNTER 2018-07-29 21:43 | Emergency (ER) | payer SELFPAY ==
[~2018-07-29] VITALS: Ht 157.5 cm; Wt 76.0 kg
[~2018-07-29 21:43] MED LIST changes: +SULF1TAB31 PO; +TRAM50TA2 PO
[2018-07-29 21:46] VITALS: Ht 157.5 cm; Wt 76.0 kg
[2018-07-30 04:05] VITALS: BP 240/114; PULSE 77; RESP 20
[2018-07-31] MEDS ORDERED: CIPR-193 PO (21:47)
[2018-07-31] MEDS ORDERED: HYDR-4011 PO (21:50)
== END 2018-07-30 03:49 | disposition left against medical advice (07) ==
LOC: E/R 21:43
DX: Z53.21 Procedure and treatment not carried out due to patient leaving prior to being seen by health care provider (principal)
CPT/HCPCS: 93005

== ENCOUNTER 2018-07-31 15:45 | Emergency (ER) | payer OTHER ==
[~2018-07-31] VITALS: Ht 160 cm; Wt 73.9 kg
[2018-07-31 15:48] VITALS: Ht 160 cm; Wt 73.9 kg
[2018-07-31] MEDS ORDERED: SOD CHLORIDE 0.9% 1,000 ML IV STA (17:24)
[2018-07-31] MEDS ORDERED: ONDANSETRON 4 MG INJ IV STA ×2 (17:24→20:30)
[2018-07-31] MEDS ORDERED: morphine 2 MG INJ IV STA ×2 (17:24→20:30)
--- NOTE | 2018-07-31 17:25 | ERD ---
ER Documentation Chief Complaint Chief Complaint AP WITH VOMITING SINCE MONDAY HPI 43-year-old female, with a history of laparoscopic cholecystectomy 4 months ago, presents to the emergency department, complaining of 4 days with progressive worsening of diffuse abdominal pain, associated with tactile fever, nausea and vomiting x3 during the last 24 hours, watery diarrhea x4 today and general malaise. ROS All systems reviewed and are negative except as per history of present illness. Medications Home Meds Active Scripts Hydrocodone/Acetaminophen ([place] 5-325 Tablet) 1 Each Tablet, 1 TAB PO TID PRN for PAIN, #7 TAB Prov:MEHUL PA MD 07/31/18 Ciprofloxacin Hcl* (Ciprofloxacin Hcl*) 250 Mg Tablet, 250 MG PO BID for 7 Days, #14 TAB Prov:MEHUL PA MD 07/31/18 Tramadol HCl (Tramadol HCl) 50 Mg Tablet, 50 MG PO Q4 PRN for PAIN, #20 TAB Prov:CASSIE LOZANO S. 03/08/18 Sulfamethoxazole/Trimethoprim* (Bactrim Ds* Tablet) 1 Each Tablet, 1 TAB PO BID, #14 TAB Prov:CASSIE LOZANO S. 03/08/18 Hydralazine Hcl* (Hydralazine Hcl*) 25 Mg Tab, 25 MG PO Q6H PRN for ELEVATED SYSTOLIC BP, #60 TAB Prov:CASSIE LOZANO S. 03/05/18 Pantoprazole* (Protonix*) 40 Mg Tablet., 40 MG PO DAILY, #30 TAB Prov:SOLA REESE NP 01/17/18 Metformin* (Glucophage*) 500 Mg Tab, 500 MG PO WITH BREAKFAST, #30 TAB Prov:REESESOLA V. CURTAIN FITTER 01/17/18 Lisinopril* (Lisinopril*) 20 Mg Tablet, 20 MG PO DAILY, #30 TAB Prov:HARSHAD FELDER NP 08/02/17 Reported Medications Aspirin* (Aspirin* EC) 81 Mg Tablet.dr, 81 MG PO DAILY, TAB 02/08/18 Allergies Allergies: Coded Allergies: No Known Allergies (Unverified Allergy, Mild, 03/08/18) PMhx/Soc History of Surgery: Yes (Cholecysectomy, Gall bladdder) Anesthesia Reaction: No Hx Neurological Disorder: Yes (occassional numbness in both legs) Hx Respiratory Disorders: Yes (Asthma) Hx Cardiac Disorders: Yes (Stroke x3, HTN) Hx Psychiatric Problems: Yes (depression and anxiety) Hx Miscellaneous Medical Probl: No Hx Alcohol Use: Yes (Occasional) Hx Substance Use: No Hx Tobacco Use: No Physical Exam Vitals Vital Signs Date Temp Pulse Resp B/P (MAP) Pulse Ox O2 O2 Flow FiO2 Time Delivery Rate 07/31/18 98.3 84 16 164/93 98 Room Air 21:50 (116) 07/31/18 100.2 122 18 167/96 99 15:48 (119) Physical Exam Const: No acute distress Head: Atraumatic Eyes: Normal Conjunctiva ENT: Normal External Ears, Nose and Mouth. Neck: Full range of motion. No meningismus. Resp: Clear to auscultation bilaterally Cardio: Regular rate and rhythm, no murmurs Abd: Soft, non distended, diffuse tenderness to deep palpation without definitive peritoneal signs. Normal bowel sounds Skin: No petechiae or rashes Back: No midline or flank tenderness Ext: No cyanosis, or edema Neur: Awake and alert Psych: Normal Mood and Affect Result Diagram: 07/31/18 1745 07/31/18 1745 Results 24 hrs Laboratory Tests Test 07/31/18 17:41 07/31/18 17:45 Urine Color YELLOW Urine Clarity SLIGHTLY CLOUDY Urine pH 5.0 Urine Specific [place] 1.028 Urine Ketones TRACE mg/dL Urine Nitrite NEGATIVE mg/dL Urine Bilirubin NEGATIVE mg/dL Urine Urobilinogen 1+ mg/dL Urine Leukocyte Esterase NEGATIVE Pepper/ul Urine Microscopic RBC 3 /HPF Urine Microscopic WBC 8 /HPF Urine Squamous Epithelial Cells MODERATE /HPF Urine Bacteria FEW /HPF Urine Mucus MODERATE /HPF Urine Hemoglobin 3+ mg/dL Urine Glucose 3+ mg/dL Urine Total Protein 1+ mg/dl Urine Test NEGATIVE White Blood Count 13.7 10^3/ul Red Blood Count 4.55 10^6/ul Hemoglobin 12.9 g/dl Hematocrit 39.4 % Mean Corpuscular Volume 86.6 fl Mean Corpuscular Hemoglobin 28.4 pg Mean Corpuscular Hemoglobin Concent 32.7 g/dl Red Cell Distribution Width 12.8 % Platelet Count 306 10^3/UL Mean Platelet Volume 11.0 fl Immature Granulocytes % 0.400 % Neutrophils % 86.4 % Lymphocytes % 8.5 % Monocytes % 4.2 % Eosinophils % 0.1 % Basophils % 0.4 % Nucleated Red Blood Cells % 0.0 /100WBC Immature Granulocytes # 0.060 10^3/ul Neutrophils # 11.8 10^3/ul Lymphocytes # 1.2 10^3/ul Monocytes # 0.6 10^3/ul Eosinophils # 0.0 10^3/ul Basophils # 0.1 10^3/ul Nucleated Red Blood Cells # 0.0 10^3/ul Sodium Level 144 mmol/L Potassium Level 3.9 mmol/L Chloride Level 104 mmol/L Carbon Dioxide Level 28 mmol/L Anion Gap 12 Blood Urea Nitrogen 9 mg/dl Creatinine 0.66 mg/dl Est Glomerular Filtrat Rate mL/min > 60 mL/min Glucose Level 246 mg/dl Calcium Level 9.9 mg/dl Total Bilirubin 0.6 mg/dl Direct Bilirubin 0.00 mg/dl Indirect Bilirubin 0.6 mg/dl Aspartate Amino Transf (AST/SGOT) 64 IU/L Alanine Aminotransferase (ALT/SGPT) 80 IU/L Alkaline Phosphatase 74 IU/L Total Protein 8.1 g/dl Albumin 4.6 g/dl Globulin 3.50 g/dl Albumin/Globulin Ratio 1.31 Lipase 41 U/L Current Medications Medications Dose Sig/Patty Start Time Status Last (Trade) Ordered Route PRN Stop Time Admin Dose Reason Admin Sodium 1,000 ml @ Q1H STAT 07/31/18 DC 07/31/18 Chloride 1,000 mls/hr IV 17:24 17:44 07/31/18 18:23 Morphine 2 mg ONCE STAT 07/31/18 DC 07/31/18 Sulfate IV 17:24 17:44 (morphine) 07/31/18 17:28 Ondansetron 4 mg ONCE STAT 07/31/18 DC 07/31/18 HCl (Zofran IV 17:24 17:44 Inj) 07/31/18 17:28 Morphine 1 mg ONCE STAT 07/31/18 DC 07/31/18 Sulfate IV 20:30 20:43 (morphine) 07/31/18 20:38 Ondansetron 4 mg ONCE STAT 07/31/18 DC 07/31/18 HCl (Zofran IV 20:30 20:41 Inj) 07/31/18 20:38 Ceftriaxone 50 ml @ ONCE ONCE 07/31/18 DC 07/31/18 Sodium 100 mls/hr IVPB 21:00 21:38 07/31/18 21:29 Patient: JENNIFER ORDONEZ : 1975 Age: 43 Sex: F MR #: [id number] [facility] #: [id number] DOS: 07/31/18 1724 Ordering MD: MEHUL PA MD Location: [facility] Room/Bed: PROCEDURE: CT Abdomen and Pelvis Without Intravenous Contrast CLINICAL INDICATION: Abdominal pain. TECHNIQUE: Axial computed tomography images of the abdomen and pelvis without intravenous contrast. Sagittal and coronal reformatted images were created and reviewed. CTDIvol (mGy) = 12.88; total DLP (mGy-cm) = 761.78. This CT exam was performed using one or more of the following dose reduction techniques: automated e xposure control, adjustment of the mA and/or kV according to patient size, and/or use of iterative reconstruction technique. DICOM images are available. COMPARISON: 03/08/2018 (03/08/2018) FINDINGS: LUNG BASES: Unremarkable. No mass. No consolidation. ABDOMEN: LIVER: The liver demonstrates decreased attenuation, consistent with severe hepatic steatosis. GALLBLADDER AND BILE DUCTS: The gallbladder is surgically absent. No biliary dilatation. PANCREAS: Unremarkable. No ductal dilation. SPLEEN: Unremarkable. No splenomegaly. ADRENALS: Unremarkable. No mass. KIDNEYS AND URETERS: Unremarkable. No obstructing stones. No hydronephrosis. STOMACH AND BOWEL: Unremarkable. No obstruction. No mucosal thickening. PELVIS: APPENDIX: The appendix is normal in appearance. No evidence of appendicitis. BLADDER: Unremarkable. No stones. REPRODUCTIVE: 2.5 cm partially calcified uterine myoma. ABDOMEN and PELVIS: INTRAPERITONEAL SPACE: Unremarkable. No free air. No significant fluid collection. BONES/JOINTS: No acute fracture. No dislocation. SOFT TISSUES: Small umbilical hernia noted, containing only fat. VASCULATURE: Minimal atherosclerosis of the aorta. LYMPH NODES: Unremarkable. No enlarged lymph nodes. IMPRESSION: 1. The liver demonstrates decreased attenuation, consistent with severe hepatic steatosis. 2. 2.5 cm partially calcified uterine myoma. 3. Small umbilical hernia noted, containing only fat. 4. No acute abnormality demonstrated in the abdomen and pelvis. 5. There is no significant interval change from the previous study. Procedures/MDM Physical exam unremarkable, patient in no distress, hydrated, adequate oral intake, abdomen, soft, nontender, no peritoneal signs. Differential diagnosis include but not limited to: gastrointestinal infection bacterial/viral, UTI, appendicitis, colitis, food poisoning, food intolerance. Low suspicion for acute abdomen Physical examination and clinical presentation consistent most likely with UTI and gastroenteritis. During the ED course the patient remained stable, overall improvement of the symptoms after receiving treatment in the emergency department with IV fluids, IV Rocephin and IV medications. Clinical impression discussed with the patient who agrees with management. The patient is stable to be discharged home, Some side effects of prescribed medications (headache, rash, nausea, vomiting, diarrhea, interactions with other medications) were reviewed. The patient requires a follow up with the primary care provider in the next 48h. If symptoms persist, worsen or new symptoms develop, then patient should return to the ED immediately. Disclaimer: Inadvertent spelling and grammatical errors are likely due to EHR/dictation software use and do not reflect on the overall quality of patient care. Also, please note that the electronic time recorded on this note does not necessarily reflect the actual time of the patient encounter. Departure Diagnosis: Primary Impression: UTI (urinary tract infection) Condition: Stable Patient Instructions: Understanding Urinary Tract Infections (UTIs) Additional Instructions: Muchas cristian por [facility] para salazar servicio. Esperamos que en salazar visita a la ana de emergencia salazar problema medico haya sido solucionado y que se sienta mucho mejor. Para estar seguros que salazar mejoria sigue en proceso, le pedimos el favor de hacer levy toya de seguimiento medico con salazar doctor primario en los proximos 2-4 arraiga. Lleve con usted estos documentos y las medicinas recetadas. Si hakan sintomas empeoran, NO SE ESPERE, por favor regrese a ana de emergencia INMEDIATAMENTE. En vanessa que usted no tenga un mdico de atencin primaria: Llame al mdico o clnica comunitaria de referencia que aparece abajo kehinde las horas de consultorio para hacer levy toya para que le vean. CLINICAS: [facility] [phone] [facility] [phone] [facility] [phone] [facility] [phone] [facility] [phone] [id number] [facility]. [phone] MEHUL KIRK MD Jul 31, 2018 17:25
[2018-07-31] MEDS ORDERED: CEFTRIAXONE 1 GM/50 ML (PMX) 50 ML IVPB ONE (21:00)
[2018-07-31] MEDS ORDERED: CIPR-193 PO (21:47)
[2018-07-31 21:50] VITALS: BP 164/93; PULSE 84; RESP 16
[2018-07-31] MEDS ORDERED: HYDR-4011 PO (21:50)
== END 2018-07-31 22:19 | disposition home or self-care (01) ==
LOC: FTE 15:45
DX: N39.0 Urinary tract infection, site not specified (principal); I10 Essential (primary) hypertension; J45.909 Unspecified asthma, uncomplicated; Z79.82 Long term (current) use of aspirin
CPT/HCPCS: 36415; 74176; 80053; 81001; 83690; 84703; 85025; 96361; 96365; 96375; 96376; J0696; J2270; J2405; J7030; Z7502

== ENCOUNTER 2018-10-07 05:14 | Emergency (ER) | payer OTHER ==
[~2018-10-07] VITALS: Ht 157.5 cm; Wt 73.6 kg
[~2018-10-07 05:14] MED LIST changes: +CIPR-193 PO; +HYDR-4011 PO
[2018-10-07 05:18] VITALS: Ht 157.5 cm; Wt 73.6 kg
[2018-10-07] MEDS ORDERED: KETOROLAC 30 MG INJ IM STA (07:19)
[2018-10-07 10:10] VITALS: BP 140/92; PULSE 74; RESP 19
--- NOTE | 2018-10-07 11:30 | ERD ---
ER Documentation Chief Complaint Chief Complaint Pt reports CARDENAS, ST, and neck pain HPI Translation services were utilized during this patient's encounter Language: Greek Source: In person 43-year-old female with a multitude of different complaints over 1 to 2 months. The patient describes sore throat, occasional headaches, occasional shortness of breath. She describes sore throat. She states that she thinks all of these are because she has family members or smoke. She does not smoke. Patient describes occasional body pain. She has seen her doctor with lavatory testing that has been unrevealing. She presents because of persistent symptoms. ROS All systems reviewed and are negative except as per history of present illness. Medications Home Meds Active Scripts Hydrocodone/Acetaminophen ([place] 5-325 Tablet) 1 Each Tablet, 1 TAB PO TID PRN for PAIN, #7 TAB Prov:MEHUL PA MD 07/31/18 Ciprofloxacin Hcl* (Ciprofloxacin Hcl*) 250 Mg Tablet, 250 MG PO BID for 7 Days, #14 TAB Prov:MEHUL PA MD 07/31/18 Tramadol HCl (Tramadol HCl) 50 Mg Tablet, 50 MG PO Q4 PRN for PAIN, #20 TAB Prov:CASSIE LOZANO 03/08/18 Sulfamethoxazole/Trimethoprim* (Bactrim Ds* Tablet) 1 Each Tablet, 1 TAB PO BID, #14 TAB Prov:CASSIE LOZANO 03/08/18 Hydralazine Hcl* (Hydralazine Hcl*) 25 Mg Tab, 25 MG PO Q6H PRN for ELEVATED SYSTOLIC BP, #60 TAB Prov:CASSIE LOZANO 03/05/18 Pantoprazole* (Protonix*) 40 Mg Tablet., 40 MG PO DAILY, #30 TAB Prov:SOLA REESE V. [employer]ANT 01/17/18 Metformin* (Glucophage*) 500 Mg Tab, 500 MG PO WITH BREAKFAST, #30 TAB Prov:REESESOLA V. [employer] SALES CONSULTANT 01/17/18 Lisinopril* (Lisinopril*) 20 Mg Tablet, 20 MG PO DAILY, #30 TAB Prov:HARSHAD FELDER NP 08/02/17 Reported Medications Aspirin* (Aspirin* EC) 81 Mg Tablet., 81 MG PO DAILY, TAB 12/20/18 Allergies Allergies: Coded Allergies: No Known Allergies (Unverified Allergy, Mild, 10/07/18) PMhx/Soc History of Surgery: Yes (Cholecysectomy, Gall bladdder) Anesthesia Reaction: No Hx Neurological Disorder: Yes (occassional numbness in both legs) Hx Respiratory Disorders: Yes (Asthma) Hx Cardiac Disorders: Yes (Stroke x3, HTN) Hx Psychiatric Problems: Yes (depression and anxiety) Hx Miscellaneous Medical Probl: No Hx Alcohol Use: Yes (Occasional) Hx Substance Use: No Hx Tobacco Use: No Smoking Status: Never smoker FmHx Family History: No diabetes Physical Exam Vitals Vital Signs Date Temp Pulse Resp B/P (MAP) Pulse Ox O2 O2 Flow FiO2 Time Delivery Rate 10/07/18 98.2 74 19 140/92 100 Room Air 10:10 (108) 10/07/18 87 21 144/106 98 Room Air 07:45 (119) 10/07/18 99 16 183/109 99 Room Air 06:17 (133) 10/07/18 99.0 120 20 182/100 100 05:18 (127) Physical Exam General: Well developed, well nourished, no acute distress Head: Normocephalic, atraumatic. Eyes: Pupils equally reactive, EOM intact ENT: Moist mucous membranes, posterior pharynx without swelling or exudates Neck: Supple, no lymphadenopathy Respiratory: Lungs clear bilaterally, no distress Cardiovascular: RRR, no murmurs, rubs, or gallops Abdominal: Soft, non-tender, non-distended, no peritoneal signs : Deferred MSK: No edema, no unilateral swelling, 5/5 strength Neurologic: Alert and oriented, moving all extremities, normal speech, no focal weakness, no cerebellar signs Skin: No rash Psych: Normal mood Results 24 hrs Laboratory Tests Test 10/07/18 07:37 POC Beta HCG, Qualitative NEGATIVE Current Medications Medications Dose Sig/Patty Start Time Status Last (Trade) Ordered Route PRN Stop Time Admin Dose Reason Admin Ketorolac 30 mg ONCE STAT 10/07/18 DC 10/07/18 Tromethamine IM 07: 07:43 (Toradol) 10/07/18 07:20 Procedures/MDM Patient's presentation is nonspecific and subacute. The patient is extremely worried about secondhand smoke. She exhibits no signs or symptoms concerning for acute medical emergency. Reassurance was provided. Patient does have elevated blood pressure but has a known history of hypertension and takes her blood pressure medication. No evidence of endorgan dysfunction. Chest x-ray to rule out pulmonary process to give the patient reassurance but low pretest probability for acute issue. Chest x-ray: I reviewed and interpreted a 1 view of the chest Mediastinum: No enlargement Cardiac silhouette: No cardiomegaly Airspace: Clear lung orr bilaterally without evidence of pneumothorax Bones: No evidence of fracture Patient can be safely discharged with close primary care follow-up. Departure Diagnosis: Primary Impression: Myalgia Condition: Stable Patient Instructions: Myalgias Referrals: [facility] YOU HAVE RECEIVED A MEDICAL SCREENING EXAM AND THE RESULTS INDICATE THAT YOU DO NOT HAVE A CONDITION THAT REQUIRES URGENT TREATMENT IN THE EMERGENCY DEPARTMENT. FURTHER EVALUATION AND TREATMENT OF YOUR CONDITION CAN WAIT UNTIL YOU ARE SEEN IN YOUR DOCTORS OFFICE WITHIN THE NEXT 1-2 DAYS. IT IS YOUR RESPONSIBILITY TO MAKE AN APPOINTMENT FOR FOLOW-UP CARE. IF YOU HAVE A PRIMARY DOCTOR --you should call your primary doctor and schedule an appointment IF YOU DO NOT HAVE A PRIMARY DOCTOR YOU CAN CALL OUR PHYSICIAN REFERRAL HOTLINE AT IF YOU CAN NOT AFFORD TO SEE A PHYSICIAN YOU CAN CHOSE FROM THE FOLLOWING [facility] [address] [facility]. [facility] [address] [facility] [facility] [address] [facility] [facility] [address] [facility] [facility] [address] [facility]. [facility]. [address] [facility]. [facility] YOU HAVE RECEIVED A MEDICAL SCREENING EXAM AND THE RESULTS INDICATE THAT YOU DO NOT HAVE A CONDITION THAT REQUIRES URGENT TREATMENT IN THE EMERGENCY DEPARTMENT. FURTHER EVALUATION AND TREATMENT OF YOUR CONDITION CAN WAIT UNTIL YOU ARE SEEN IN YOUR DOCTORS OFFICE WITHIN THE NEXT 1-2 DAYS. IT IS YOUR RESPONSIBILITY TO MAKE AN APPOINTMENT FOR FOLOW-UP CARE. IF YOU HAVE A PRIMARY DOCTOR --you should call your primary doctor and schedule and appointment IF YOU DO NOT HAVE A PRIMARY DOCTOR YOU CAN CALL OUR PHYSICIAN REFERRAL HOTLINE AT . IF YOU CAN NOT AFFORD TO SEE A PHYSICIAN YOU CAN CHOSE FROM THE FOLLOWING [facility]: [facility] [address] [place] [address] [facility] [address] [place] [address] [facility] [address] [place] [address] Additional Instructions: Call your primary care doctor TOMORROW for an appointment during the next 1 WEEK.Tell the patient care secretary that you were referred from this facility.See the doctor sooner or return here if your condition worsens before your appointment time. DOROTHEA SALDANA MD Oct 07, 2018 11:30
== END 2018-10-07 10:11 | disposition home or self-care (01) ==
LOC: E/R 05:14
DX: M79.10 Myalgia, unspecified site (principal); I10 Essential (primary) hypertension; J45.909 Unspecified asthma, uncomplicated; Z79.82 Long term (current) use of aspirin; Z79.84 Long term (current) use of oral hypoglycemic drugs; Z86.73 Personal history of transient ischemic attack (TIA), and cerebral infarction without residual deficits
CPT/HCPCS: 71045; 81025; 96372; J1885; Z7502